=== PATIENT | female | born 1990 | race Caucasian/White ===

== ENCOUNTER → 2024-05-15 | Outpatient (CLI) | payer MEDICAID, SELFPAY ==
--- NOTE | 2024-05-15 09:03 | XR_ITS ---
Examination: Bilateral hands, 6 views. 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
--- NOTE | 2024-05-15 09:03 | XR_ITS ---
Examination: Bilateral wrists 6 views TECHNIQUE: AP oblique lateral each wrist total 6 views Exam date and time: May 15, 2024 1009 hours INDICATIONS: Bilateral wrist pain with decreased range of motion 2 years FINDINGS: No fracture or dislocation involving either wrist Bilateral mild osteoarthritis radiocarpal and first carpometacarpal joints No avascular necrosis No erosive arthritis IMPRESSION: Bilateral mild osteoarthritis radiocarpal and first carpometacarpal joints
== END | disposition home or self-care (01) ==
LOC: CDIM 08:57
PROVIDERS: PCP Family Medicine; Referring Provider Nurse Practitioner Gerontology; Visit Provider Nurse Practitioner Gerontology
DX: M19.032 Primary osteoarthritis, left wrist (principal); M19.031 Primary osteoarthritis, right wrist; M19.042 Primary osteoarthritis, left hand; M19.041 Primary osteoarthritis, right hand; M20.092 Other deformity of left finger(s)
CPT/HCPCS: 73110; 73130

== ENCOUNTER 2024-07-04 00:13 | Emergency (ER) | payer MEDICAID, SELFPAY ==
[2024-07-04 00:14] VITALS: BMI 40.7
[2024-07-04 00:43] VITALS: BP 131/58; PULSE 74; RESP 19; TEMP 36.8; O2SAT 98
--- NOTE | 2024-07-04 01:11 | PD.EDURI ---
Upper Respiratory Inf. RME/HPI General Chief Complaint: Flu Like Symptoms Stated Complaint: COUGHING, VOMITING Time Seen by Provider: 07/04/24 00:53 Arrival date/time: 07/04/24 00:13 33F with history of meth use presents to ED with several days of cough and sore throat, as well as some N/V from coughing. Patient denies ab pain, CP, and SOB. Limitations: no limitations Related Data Previous Rx's ?Medication ?Instructions ?Recorded albuterol sulfate 90 mcg/actuation 2 puff inhalation QID PRN 03/28/21 aerosol inhaler shortness of breath or wheezing #8.5 grams ibuprofen 800 mg tablet 800 mg PO Q6H PRN pain #10 tabs 03/28/21 acetaminophen 500 mg tablet 1,000 mg (2 x 500 mg) PO TID PRN 03/13/22 (Tylenol Extra Strength) fever or pain #30 tabs sumatriptan succinate 25 mg tablet 25 mg PO Q6HR PRN migraine 12/31/22 headache #30 tabs dextromethorphan-guaifenesin 10 10 ml PO Q8H PRN cough #237 mL 06/01/23 mg-100 mg/5 mL oral syrup ibuprofen 800 mg tablet 800 mg PO Q8H PRN pain #20 tabs 06/01/23 phenazopyridine 200 mg tablet 200 mg PO TID 6 doses #6 tabs 06/09/23 (Pyridium) ibuprofen 800 mg tablet (IBU) 800 mg PO Q8H #20 tabs 07/28/23 phenazopyridine 100 mg tablet 100 mg PO TID PRN pain 6 doses #6 07/28/23 (Pyridium) tabs erythromycin 5 mg/gram (0.5 %) eye 0.5 inch ophthalmic (eye) QID #3.5 09/03/23 ointment grams ibuprofen 800 mg tablet 800 mg PO TID PRN pain #30 tabs 02/01/24 oseltamivir 75 mg capsule (Tamiflu) 75 mg PO BID 5 days #10 caps 07/04/24 Allergies Allergy/AdvReac Type Severity Reaction Status Date / Time No Known Allergies Allergy Verified 07/04/24 00:16 Review of Systems Review of Systems Systems Reviewed: All systems reviewed, normal except as documented Constitutional Constitutional: Reports system reviewed and no additional complaints, except as documented, Denies fever(s) and Denies headache(s) ENT Ears, Nose, Mouth, and Throat: Reports as per HPI, Denies disequilibrium, Denies headache(s) and Reports sore throat Cardiovascular Cardiovascular: Reports system reviewed and no additional complaints, except as documented, Denies chest pain and Denies dyspnea Respiratory Respiratory: Reports system reviewed and no additional complaints, except as documented, Reports as per HPI, Reports cough and Denies dyspnea Gastrointestinal Gastrointestinal: Reports system reviewed and no additional complaints, except as documented, Denies abdominal pain, Denies nausea and Denies vomiting Neurologic Neurologic: Reports system reviewed and no additional complaints, except as documented, Denies confusion, Denies disequilibrium and Denies headache(s) Psychiatric Psychiatric: Denies confusion Past Medical History Past Medical History NEUROLOGIC: Negative Neurological Disorders CARDIAC: Positive Cellulitis; Negative Cardiac Disorders or Congestive Heart Failure RESPIRATORY: Positive Asthma; Negative Chronic Obstructive Pulmonary Disease (COPD) GASTROINTESTINAL: Negative Gastrointestinal Disorders GENITOURINARY: Positive Genitourinary Disorders; Negative Renal Disease MUSCULOSKELETAL: Negative Musculoskeletal Disorders ENDOCRINE: Positive Endocrine Disorders and Systemic Lupus Erythematosus; Negative Diabetes Mellitus Type 1 or Diabetes Mellitus Type 2 HEMATOLOGIC: Positive Blood Disorders and Anemia; Negative Sickle Cell Disease PSYCHO/SOCIAL: Positive Recreational Drug Use and Depression Surgical History SURGICAL: Positive Tubal Ligation Social History SMOKING STATUS: Current every day smoker SUBSTANCE USE: former substance user (meth, heroin, weed) ED Exam General Limitations: Present no limitations General appearance: Present alert and in no apparent distress Head Head exam: Present atraumatic Eye Eye exam: Present normal appearance, PERRL and EOMI ENT ENT exam: Present mucous membranes moist Expanded ENT Exam Throat exam: Present tonsillar erythema; Absent tonsillomegaly, tonsillar exudate, R peritonsillar mass, L peritonsillar mass or muffled voice Neck Neck exam: Present normal inspection, full ROM and trachea midline Chest Chest inspection: Present normal inspection and symmetric chest wall rise Respiratory Respiratory exam: Present normal lung sounds bilaterally Cardiovascular Cardiovascular exam: Present regular rate, normal rhythm and normal heart sounds Abdominal Exam Abdominal exam: Present soft and normal bowel sounds Extremities Exam Extremities exam: Present normal inspection and full ROM Back Exam Back exam: Present normal inspection and full ROM Neurological Exam Neurological exam: Present alert, oriented X3 and CN II-XII intact Psychiatric Psychiatric exam: Present normal affect and normal mood Skin Skin exam: Present warm, dry, intact and normal color Course Quality Measures none Orders Category Date Time Status Bedside Influenza A&B Antigen Test NOW Care 07/04/24 00:18 Completed Strep A Rapid Stat Lab 07/04/24 01:00 Completed Oseltamivir [Tamiflu] Med 07/04/24 02:27 Discontinued 75 mg PO X1 ONE Vital Signs Vital signs: Vital Signs Temperature 98.3 F 07/04/24 00:43 Pulse Rate 74 07/04/24 00:43 Respiratory Rate 19 07/04/24 00:43 Blood Pressure 131/58 H 07/04/24 00:43 Pulse Oximetry (%) 98 07/04/24 00:43 Oxygen Delivery Method Room Air 07/04/24 00:43 O2 at 98% on RA and WNLs Upper Respiratory Infection MDM Narrative MDM Narrative:: 33F with history of meth use presents to ED with several days of cough and sore throat, as well as some N/V from coughing. Patient denies ab pain, CP, and SOB. Physical exam reveals red oropharynx, but otherwise clear ENT and lungs. Patient is afebrile, calm, and alert. Flu A/B+. WIll give Tamiflu given meth use. Patient data External records reviewed:: [facility] previous records Clinical information provided by:: patient Social determinants that could affect healthcare access:: substance use Patient has the following chronic illnesses:: meth use How is presenting disease/condition affected by chronic disease/condition?: exacerbated by Evaluation data The following diagnostics were reviewed and interpreted by me:: lab results Lab and/or radiology exams considered but not ordered:: ordered Interpretation Summary: above Medications / Prescriptions Medications or Prescriptions considered but not ordered:: ordered Medication administrations:: Medication Administration History Discontinued Medications Oseltamivir Phosphate (Oseltamivir 75 Mg Capsule) 75 mg PO X1 ONE Stop: 07/04/24 02:28 above Consultations Consultation(s) initiated? (list below): No Diagnosis Upper Respiratory Differential Diagnosis: upper respiratory infection, croup, otitis media, sinusitis, viral infection, bronchitis, influenza and pharyngitis Most likely diagnosis given after review of the tests above:: flu A/B Admission Indicated Admission indicated?: not indicated Admission Request Was there a request for admission?: No Disposition Plan Disposition Plan: Discharge Discharge Attestation Discharge Attestation: The patient and all family members were given an opportunity to ask questions and understood the discharge instructions. Discharge instructions specifically effects, indications for sooner follow up or return to the emergency department, and the expected course of current diagnosis. Patient condition: Stable Discharge Plan Plan Patient Disposition: HOME (Self Care) Disposition Comment: Stable Prescriptions/Referrals Prescriptions/Med Rec: New oseltamivir [Tamiflu] 75 mg capsule 75 mg PO BID 5 Days Qty: 10 0RF No Action albuterol sulfate 90 mcg/actuation HFA aerosol inhaler 2 puff inhalation QID PRN (Reason: shortness of breath or wheezing) Qty: 8.5 0RF ibuprofen 800 mg tablet 800 mg PO Q6H PRN (Reason: pain) Qty: 10 0RF acetaminophen [Tylenol Extra Strength] 500 mg tablet 1,000 mg PO TID PRN (Reason: fever or pain) Qty: 30 0RF ibuprofen 800 mg tablet 800 mg PO Q8H PRN (Reason: pain) Qty: 20 0RF dextromethorphan-guaifenesin 10-100 mg/5 mL syrup 10 ml PO Q8H PRN (Reason: cough) Qty: 237 0RF phenazopyridine [Pyridium] 100 mg tablet 100 mg PO TID PRN (Reason: pain) Qty: 6 0RF ibuprofen [IBU] 800 mg tablet 800 mg PO Q8H Qty: 20 0RF ibuprofen 800 mg tablet 800 mg PO TID PRN (Reason: pain) Qty: 30 0RF sumatriptan succinate 25 mg tablet 25 mg PO Q6HR PRN (Reason: migraine headache) Qty: 30 0RF Rx Instructions: do not exceed 8 doses per 24 hrs phenazopyridine [Pyridium] 200 mg tablet 200 mg PO TID Qty: 6 0RF erythromycin 5 mg/gram (0.5 %) ointment 0.5 inch ophthalmic (eye) QID Qty: 3.5 0RF Referrals: Jose Quevedo MD [Primary Care Provider] - In 1 week Problem List Clinical Impression: Influenza Patient/Caregiver Discharge Instructions Education Materials: ED Influenza (Adult) Additional Instructions: Please follow-up with PCP within 24-48 hours and return immediately if symptoms worsen. Ibuprofen/Tylenol can be used simultaneously for greater fever/pain control. FYI, Tylenol comes in a suppository form. Benadryl is good for cough, congestion, and sleep. Print Language: Syriac Stand Alone Forms: Patient Portal Info Letter PA/VP CARDIOVASCULAR Supervising Physician PA/VP CARDIOVASCULAR Supervising Physician: Dr. Connelly
[2024-07-04 02:24] LABS: Strep A Rapid Negative (Negative)
[2024-07-04] MEDS: OSELTAMIVIR 75 MG CAPSULE PO (02:34)
== END 2024-07-04 02:35 | disposition home or self-care (01) ==
PROVIDERS: Physician Assistant; Emergency Provider Emergency Medicine; PCP Family Medicine
DX: J11.1 Influenza due to unidentified influenza virus with other respiratory manifestations (principal); F17.290 Nicotine dependence, other tobacco product, uncomplicated
CPT/HCPCS: 87400; 87651; 99283; A9270

== ENCOUNTER 2024-07-24 18:26 | Emergency (ER) | payer MEDICAID, SELFPAY ==
[2024-07-24 18:36] VITALS: BP 129/82; PULSE 93; RESP 20; TEMP 36.8; O2SAT 99
--- NOTE | 2024-07-24 18:58 | EDNOTE_ITS ---
ED Back Injury Pain RME/HPI General Chief Complaint: Back Pain/Injury Stated Complaint: LOWER LEFT BACK PAIN X TODAY Time Seen by Provider: 07/24/24 18:39 Arrival date/time: 07/24/24 18:26 33F with history of asthma, SLE, and drug use presents to ED with 1 day of L lower back pain as well as several days of dysuria. Patient denies fall/trauma, but does state she's been moving/poultry picker things more today. Limitations: no limitations Related Data Previous Rx's ?Medication ?Instructions ?Recorded albuterol sulfate 90 mcg/actuation 2 puff inhalation Q ID PRN 03/28/21 aerosol inhaler shortness of breath or wheez ing #8.5 grams ibuprofen 800 mg tablet 800 mg PO Q6H PRN pain #10 t abs 03/28/21 acetaminophen 500 mg tablet 1,000 mg (2 x 500 mg) PO T ID PRN 03/13/22 (Tylenol Extra Strength) fever or pain #30 tabs sumatriptan succinate 25 mg tablet 25 mg PO Q6HR PRN m igraine 12/31/22 headache #30 tabs dextromethorphan-guaifenesin 10 10 ml PO Q8H PRN cough #237 mL 06/01/23 mg-100 mg/5 mL oral syrup ibuprofen 800 mg tablet 800 mg PO Q8H PRN pain #20 t abs 06/01/23 phenazopyridine 200 mg tablet 200 mg PO TID 6 doses #6 tabs 06/09/23 (Pyridium) ibuprofen 800 mg tablet (IBU) 800 mg PO Q8H #20 tabs 0 07/28/23 phenazopyridine 100 mg tablet 100 mg PO TID PRN pain 6 doses #6 07/28/23 (Pyridium) tabs erythromycin 5 mg/gram (0.5 %) eye 0.5 inch ophthalmic (eye) QID #3.5 09/03/23 ointment grams ibuprofen 800 mg tablet 800 mg PO TID PRN pain #30 t abs 02/01/24 Allergies Allergy/AdvReac Type Severity Reaction Status Date / Time No Known Allergies Allergy Verified 07/04/24 00:16 Review of Systems Review of Systems Systems Reviewed: All systems reviewed, normal except as documented Constitutional Constitutional: Reports system reviewed and no additional complaints, except as documented, Denies fever(s) and Denies headache(s) ENT Ears, Nose, Mouth, and Throat: Denies disequilibrium and Denies headache(s) Cardiovascular Cardiovascular: Reports system reviewed and no additional complaints, except as documented, Denies chest pain and Denies dyspnea Respiratory Respiratory: Reports system reviewed and no additional complaints, except as documented, Denies cough and Denies dyspnea Gastrointestinal Gastrointestinal: Reports system reviewed and no additional complaints, except as documented, Denies abdominal pain, Denies nausea and Denies vomiting Genitourinary Genitourinary: Reports as per HPI, Reports dysuria and Reports flank pain Neurologic Neurologic: Reports system reviewed and no additional complaints, except as documented, Denies confusion, Denies disequilibrium and Denies headache(s) Psychiatric Psychiatric: Denies confusion Past Medical History Past Medical History NEUROLOGIC: Negative Neurological Disorders CARDIAC: Positive Cellulitis; Negative Cardiac Disorders or Congestive Heart Failure RESPIRATORY: Positive Asthma; Negative Chronic Obstructive Pulmonary Disease (COPD) GASTROINTESTINAL: Negative Gastrointestinal Disorders GENITOURINARY: Positive Genitourinary Disorders; Negative Renal Disease MUSCULOSKELETAL: Negative Musculoskeletal Disorders ENDOCRINE: Positive Endocrine Disorders and Systemic Lupus Erythematosus; Negative Diabetes Mellitus Type 1 or Diabetes Mellitus Type 2 HEMATOLOGIC: Positive Blood Disorders and Anemia; Negative Sickle Cell Disease PSYCHO/SOCIAL: Positive Recreational Drug Use and Depression Surgical History SURGICAL: Positive Tubal Ligation Social History SMOKING STATUS: Light (< 1 pack/day) SUBSTANCE USE: former substance user (meth, heroin, weed) ED Exam General Limitations: Present no limitations General appearance: Present alert and in no apparent distress Head Head exam: Present atraumatic Eye Eye exam: Present normal appearance, PERRL and EOMI ENT ENT exam: Present normal exam, normal oropharynx and mucous membranes moist Neck Neck exam: Present normal inspection, full ROM and trachea midline Chest Chest inspection: Present normal inspection and symmetric chest wall rise Respiratory Respiratory exam: Present normal lung sounds bilaterally Cardiovascular Cardiovascular exam: Present regular rate, normal rhythm and normal heart sounds Abdominal Exam Abdominal exam: Present soft and normal bowel sounds Extremities Exam Extremities exam: Present normal inspection and full ROM Back Exam Back exam: Present normal inspection and full ROM Neurological Exam Neurological exam: Present alert, oriented X3 and CN II-XII intact Psychiatric Psychiatric exam: Present normal affect and normal mood Skin Skin exam: Present warm, dry, intact and normal color Course Quality Measures none Orders Category Date Time Status CBC Stat Lab 07/24/24 18:47 Completed CMP [Comprehensive Metabolic Panel] Stat Lab 07/24/24 18:47 Completed Drug Screen,Urine Stat Lab 07/24/24 07:03 Completed HCG Qualitative,Urine Stat Lab 07/24/24 07:03 Completed Urinalysis, C/S if Indicated Stat Lab 07/24/24 07:03 Completed CYCLObenzaPRINE [Flexeril] Med 07/24/24 18:39 Discontinued 5 mg PO X1 ONE Naproxen [Naprosyn] Med 07/24/24 18:39 Discontinued 500 mg PO X1 ONE Vital Signs Vital signs: Vital Signs Temperature 98.3 F 07/24/24 18:36 Pulse Rate 93 07/24/24 18:36 Respiratory Rate 20 07/24/24 18:36 Blood Pressure 129/82 07/24/24 18:36 Pulse Oximetry (%) 99 07/24/24 18:36 Oxygen Delivery Method Room Air 07/24/24 18:36 O2 at 99% on RA and WNLs Back Pain / Injury MDM Narrative MDM Narrative:: 33F with history of asthma, SLE, and drug use presents to ED with 1 day of L lower back pain as well as several days of dysuria. Patient denies fall/trauma, but does state she's been moving/poultry picker things more today. Physical exam reveals no L back tenderness. Pain is with ROM, which is intact. Gait normal. Patient is afebrile, calm, and alert. No leukocytosis. CMP unremarkable. UA clean. Pain relieved with meds. Patient data External records reviewed:: [facility] previous records Clinical information provided by:: patient Social determinants that could affect healthcare access:: substance use Patient has the following chronic illnesses:: asthma, SLE, and drug use How is presenting disease/condition affected by chronic disease/condition?: exacerbated by Evaluation data The following diagnostics were reviewed and interpreted by me:: lab results Lab and/or radiology exams considered but not ordered:: ordered Interpretation Summary: above Medications / Prescriptions Medications or Prescriptions considered but not ordered:: ordered Medication administrations:: Medication Administration History Discontinued Medications Cyclobenzaprine HCl (Cyclobenzaprine 5 Mg Tablet) 5 mg PO X1 ONE Stop: 07/24/24 18:40 Last Admin: 07/24/24 19:13 Dose: 5 mg Documented By: OA Naproxen (Naproxen 250 Mg Tablet) 500 mg PO X1 ONE Stop: 07/24/24 18:40 Last Admin: 07/24/24 19:14 Dose: 500 mg Documented By: OA above Consultations Consultation(s) initiated? (list below): No Diagnosis Differential diagnosis back pain/injury: lumbar radiculopathy, sciatica, strain of lumbar region, renal colic, pyelonephritis (UTI), thoracic back pain, AAA and discitis Most likely diagnosis given after review of the tests above:: strain of lumbar region Admission Indicated Admission indicated?: not indicated Admission Request Was there a request for admission?: No Disposition Plan Disposition Plan: Discharge Discharge Attestation Discharge Attestation: The patient and all family members were given an opportunity to ask questions and understood the discharge instructions. Discharge instructions specifically effects, indications for sooner follow up or return to the emergency department, and the expected course of current diagnosis. Patient condition: Stable Discharge Plan Plan Patient Disposition: HOME (Self Care) Disposition Comment: Stable Prescriptions/Referrals Prescriptions/Med Rec: No Action albuterol sulfate 90 mcg/actuation HFA aerosol inhaler 2 puff inhalation QID PRN (Reason: shortness of breath or wheezing) Qty: 8.5 0RF ibuprofen 800 mg tablet 800 mg PO Q6H PRN (Reason: pain) Qty: 10 0RF acetaminophen [Tylenol Extra Strength] 500 mg tablet 1,000 mg PO TID PRN (Reason: fever or pain) Qty: 30 0RF ibuprofen 800 mg tablet 800 mg PO Q8H PRN (Reason: pain) Qty: 20 0RF dextromethorphan-guaifenesin 10-100 mg/5 mL syrup 10 ml PO Q8H PRN (Reason: cough) Qty: 237 0RF phenazopyridine [Pyridium] 100 mg tablet 100 mg PO TID PRN (Reason: pain) Qty: 6 0RF ibuprofen [IBU] 800 mg tablet 800 mg PO Q8H Qty: 20 0RF ibuprofen 800 mg tablet 800 mg PO TID PRN (Reason: pain) Qty: 30 0RF sumatriptan succinate 25 mg tablet 25 mg PO Q6HR PRN (Reason: migraine headache) Qty: 30 0RF Rx Instructions: do not exceed 8 doses per 24 hrs phenazopyridine [Pyridium] 200 mg tablet 200 mg PO TID Qty: 6 0RF erythromycin 5 mg/gram (0.5 %) ointment 0.5 inch ophthalmic (eye) QID Qty: 3.5 0RF Referrals: Jose Quevedo MD [Primary Care Provider] - In 1 week Problem List Clinical Impression: Strain of lumbar region Patient/Caregiver Discharge Instructions Education Materials: ED Back Sprain/Strain Additional Instructions: Please follow-up with PCP within 24-48 hours and return immediately if symptoms worsen. If problem persists, recommend outpatient PT and/or MRI follow-up. In the meantime, rest, use ice/heat, and/or compression. Print Language: Montserratian Stand Alone Forms: Patient Portal Info Letter PA/MANAGER OF RADIOLOGY Supervising Physician PA/MANAGER OF RADIOLOGY Supervising Physician: Dr. Connelly
[2024-07-24 19:06] LABS: Basophils # (Auto) 0.1 Thou/mm3 (0.0-0.2); Basophils % (Auto) 1 % (0-2.5); Eosinophils # (Auto) 0.5 Thou/mm3 (0.0-0.5); Eosinophils % (Auto) 6 % (0-10); Hemoglobin 11.4 g/dL (12.0-16.0); Immature Granulocytes % (Auto) 0 % (0-0); Immature Granulocytes Auto 0.01 Thou/mm3 (0.00-0.00); Lymphocytes # (Auto) 2.4 Thou/mm3 (1.0-4.8); Lymphocytes % (Auto) 27 % (10-50); Mean Corpuscular HGB Conc 33.5 g/dl (31.0-37.0); Mean Corpuscular Volume 87 fL (80-100); Monocytes # (Auto) 0.6 Thou/mm3 (0.0-0.8); Monocytes % (Auto) 6 % (0-12); Neutrophils # (Auto) 5.5 Thou/mm3 (1.8-7.7); Neutrophils % (Auto) 60 % (37-80); Nucleated Red Blood Cell % 0 /100 WBC (0); Platelet Count 322 Thou/mm3 (140-440); RDW Standard Deviation 41.4 fL (36.4-46.3); Red Blood Count 3.93 Miln/mm3 (4.00-5.20)
[2024-07-24] MEDS: CYCLObenzaPRINE 5 MG TABLET PO (19:13)
[2024-07-24] MEDS: NAPROXEN 250 MG TABLET 500 MG PO (19:14)
[2024-07-24 19:28] LABS: Alanine Aminotransferase 46 U/L (10-49); Albumin, Serum 4.4 gm/dL (3.5-5.0); Albumin/Globulin Ratio 1.3 (1.2-2.2); Alkaline Phosphatase 69 U/L (46-116); Anion Gap 8 (7-16); Aspartate Amino Transferase 20 U/L (0-34); BUN/Creatinine Ratio 13 Ratio (12-20); Bilirubin,Total 0.2 mg/dL (0.3-1.2); Blood Urea Nitrogen 9 mg/dL (9-23); Calcium 9.9 mg/dL (8.3-10.6); Calcium (Corrected) 9.9 mg/dL (8.5-10.1); Carbon Dioxide 26.9 mMol/L (20.0-31.0); Chloride 105 mMol/L (98-107); Creatinine (Component) 0.7 mg/dL (0.6-1.3); Globulin 3.4 gm/dL (2.3-3.5); Glucose 95 mg/dL (74-106); Osmolality,Calculated 278 (275-295); Potassium 4.1 mMol/L (3.4-5.1); Sodium 140 mMol/L (136-145); Total Protein 7.8 gm/dL (5.7-8.2); eGFR > 60 See Note
[2024-07-24 19:48] LABS: Collection Type, Urine Clean Catch
[2024-07-24 19:58] LABS: Bilirubin,Urine Negative (Negative); Blood,Urine Negative (Negative); Clarity,Urine Clear (Clear/Hazy); Color,Urine Lt-Yellow (Lt Yel-Yel); Culture Indicated,Urine Not Indicated; Glucose, Urine Negative (Negative); Ketones,Urine Negative (Negative); Leukocyte Esterase,Urine Negative (Negative); Nitrite,Urine Negative (Negative); PH,Urine 5.5 (5.0-7.0); Protein,Urine Negative (Neg - Trace); RBC,Urine 1 /hpf (0-3); Specific Gravity,Urine 1.019 (1.001-1.035); Squamous Epithelial Cell,Urine 3 /hpf (0-5); Urobilinogen,Urine Negative mg/dL (0.0-1.0); WBC,Urine 7 /hpf (0-5)
[2024-07-24 20:00] LABS: HCG Qualitative,Urine Negative
[2024-07-24 20:41] LABS: Amphetamine/Methamp Scrn,U Negative (Negative); Barbiturate Screen,Urine Negative (Negative); Benzodiazepines Screen,Urine Negative (Negative); Benzoylecgonine Screen, Ur Negative (Negative); Fentanyl Screen,Urine Negative (Negative); Opiate Screen,Urine Negative (Negative); THC Screen,Urine Negative (Negative)
[2024-07-24 20:42] VITALS: BP 126/88; PULSE 86; RESP 18; TEMP 36.7; O2SAT 97
== END 2024-07-24 21:22 | disposition home or self-care (01) ==
PROVIDERS: Physician Assistant; Emergency Provider Emergency Medicine; PCP Family Medicine
DX: S39.012A Strain of muscle, fascia and tendon of lower back, initial encounter (principal); J45.909 Unspecified asthma, uncomplicated; M32.9 Systemic lupus erythematosus, unspecified; F17.210 Nicotine dependence, cigarettes, uncomplicated; X58.XXXA Exposure to other specified factors, initial encounter
CPT/HCPCS: 36415; 80053; 80307; 81001; 81025; 85025; 99283; A9270

== ENCOUNTER 2024-10-08 16:27 | Emergency (ER) | payer MEDICAID, SELFPAY ==
[2024-10-08 16:28] VITALS: BMI 42.5
[2024-10-08 16:41] VITALS: BP 131/77; PULSE 94; RESP 18; TEMP 36.9; O2SAT 97
[2024-10-08 16:57] VITALS: TEMP 36.9
[2024-10-08] MEDS: KETOROLAC INJ 30 MG/ML VIAL IM (16:57)
[2024-10-08 17:13] VITALS: BP 136/82; PULSE 78; RESP 18; TEMP 36.7; O2SAT 98
--- NOTE | 2024-10-08 17:58 | PD.EDBACK ---
ED Back Injury Pain RME/HPI General Chief Complaint: Back Pain/Injury Stated Complaint: LOWER BACK PAIN Time Seen by Provider: 10/08/24 16:45 Arrival date/time: 10/08/24 16:27 33-year-old female presents emergency department today for complaints of acute on chronic back pain patient reports no saddle anesthesia no loss of bowel or bladder no chance of no fever nausea vomiting no dysuria polyuria Limitations: no limitations Related Data Previous Rx's ?Medication ?Instructions ?Recorded albuterol sulfate 90 mcg/actuation 2 puff inhalation QID PRN 03/28/21 aerosol inhaler shortness of breath or wheezing #8.5 grams ibuprofen 800 mg tablet 800 mg PO Q6H PRN pain #10 tabs 03/28/21 acetaminophen 500 mg tablet 1,000 mg (2 x 500 mg) PO TID PRN 03/13/22 (Tylenol Extra Strength) fever or pain #30 tabs sumatriptan succinate 25 mg tablet 25 mg PO Q6HR PRN migraine 12/31/22 headache #30 tabs dextromethorphan-guaifenesin 10 10 ml PO Q8H PRN cough #237 mL 06/01/23 mg-100 mg/5 mL oral syrup ibuprofen 800 mg tablet 800 mg PO Q8H PRN pain #20 tabs 06/01/23 phenazopyridine 200 mg tablet 200 mg PO TID 6 doses #6 tabs 06/09/23 (Pyridium) ibuprofen 800 mg tablet (IBU) 800 mg PO Q8H #20 tabs 07/28/23 phenazopyridine 100 mg tablet 100 mg PO TID PRN pain 6 doses #6 07/28/23 (Pyridium) tabs erythromycin 5 mg/gram (0.5 %) eye 0.5 inch ophthalmic (eye) QID #3.5 09/03/23 ointment grams ibuprofen 800 mg tablet 800 mg PO TID PRN pain #30 tabs 02/01/24 cyclobenzaprine 10 mg tablet 10 mg PO TID PRN muscle spasm 10 10/08/24 days #30 tab-caps ibuprofen 800 mg tablet 800 mg PO TID PRN pain #30 tabs 10/08/24 Allergies Allergy/AdvReac Type Severity Reaction Status Date / Time No Known Allergies Allergy Verified 10/08/24 16:29 Review of Systems Review of Systems Systems Reviewed: All systems reviewed, normal except as documented Constitutional Constitutional: Reports system reviewed and no additional complaints, except as documented, Denies fever(s) and Denies headache(s) Eyes Eyes: Reports system reviewed and no additional complaints, except as documented and Denies blurry vision ENT Ears, Nose, Mouth, and Throat: Reports system reviewed and no additional complaints, except as documented, Denies headache(s), Denies nasal congestion and Denies nasal discharge Cardiovascular Cardiovascular: Reports system reviewed and no additional complaints, except as documented, Denies chest pain and Denies dyspnea Respiratory Respiratory: Reports system reviewed and no additional complaints, except as documented, Denies chest congestion, Denies cough and Denies dyspnea Gastrointestinal Gastrointestinal: Reports system reviewed and no additional complaints, except as documented and Denies abdominal pain Musculoskeletal Musculoskeletal: Reports system reviewed and no additional complaints, except as documented and Reports back pain Integumentary/Breasts Skin/Breast: Reports system reviewed and no additional complaints, except as documented and Denies rash Neurologic Neurologic: Reports system reviewed and no additional complaints, except as documented, Reports as per HPI and Denies headache(s) Past Medical History Past Medical History NEUROLOGIC: Negative Neurological Disorders CARDIAC: Positive Cellulitis; Negative Cardiac Disorders or Congestive Heart Failure RESPIRATORY: Positive Asthma; Negative Chronic Obstructive Pulmonary Disease (COPD) GASTROINTESTINAL: Negative Gastrointestinal Disorders GENITOURINARY: Positive Genitourinary Disorders; Negative Renal Disease MUSCULOSKELETAL: Negative Musculoskeletal Disorders ENDOCRINE: Positive Endocrine Disorders and Systemic Lupus Erythematosus; Negative Diabetes Mellitus Type 1 or Diabetes Mellitus Type 2 HEMATOLOGIC: Positive Blood Disorders and Anemia; Negative Sickle Cell Disease PSYCHO/SOCIAL: Positive Recreational Drug Use and Depression Surgical History SURGICAL: Positive Tubal Ligation Social History SMOKING STATUS: Current every day smoker SUBSTANCE USE: former substance user (meth, heroin, weed) ED Exam General Limitations: Present no limitations General appearance: Present alert and in no apparent distress Head Head exam: Present atraumatic, normocephalic and normal inspection Eye Eye exam: Present normal appearance, PERRL and EOMI; Absent conjunctival injection ENT ENT exam: Present normal exam, normal oropharynx and mucous membranes moist Neck Neck exam: Present normal inspection, full ROM and trachea midline Chest Chest inspection: Present normal inspection and symmetric chest wall rise Respiratory Respiratory exam: Present normal lung sounds bilaterally Cardiovascular Cardiovascular exam: Present regular rate, normal rhythm and normal heart sounds Abdominal Exam Abdominal exam: Present soft and normal bowel sounds; Absent distention, tenderness, guarding, rebound or rigidity Extremities Exam Extremities exam: Present normal inspection and full ROM Back Exam Back exam: Present normal inspection, full ROM, tenderness, muscle spasm and paraspinal tenderness; Absent CVA tenderness (R) or CVA tenderness (L) Neurological Exam Neurological exam: Present alert, oriented X3 and CN II-XII intact Psychiatric Psychiatric exam: Present normal affect and normal mood Skin Skin exam: Present warm, dry, intact and normal color Course Quality Measures none Orders Category Date Time Status Ketorolac Inj [Toradol Inj] Med 10/08/24 16:45 Discontinued 30 mg IM X1 ONE Vital Signs Vital signs: Vital Signs Temperature 98.5 F 10/08/24 16:41 Pulse Rate 94 10/08/24 16:41 Respiratory Rate 18 10/08/24 16:41 Blood Pressure 131/77 H 10/08/24 16:41 Pulse Oximetry (%) 97 10/08/24 16:41 Oxygen Delivery Method Room Air 10/08/24 16:41 O2 saturation 97% r/a wnl Back Pain / Injury MDM Narrative MDM Narrative:: 33-year-old female presents emergency department today for complaints of acute on chronic back pain patient reports no saddle anesthesia no loss of bowel or bladder no chance of no fever nausea vomiting no dysuria polyuria On exam patient well-appearing patient does not appear toxic no acute distress Patient reports pain is worse with movement Patient was given the option for lab work and imaging patient declined Patient given Toradol for pain discharged with meds oral access and pain medications Patient discharged home in no distress to follow-up with primary care doctor in the next 24 to 48 hours and for any worsening symptoms to return to the ER immediately Patient data External records reviewed:: [facility] previous records Clinical information provided by:: patient Social determinants that could affect healthcare access:: none Patient has the following chronic illnesses:: See history How is presenting disease/condition affected by chronic disease/condition?: uneffected by Evaluation data The following diagnostics were reviewed and interpreted by me:: other (specify) (N/A) Lab and/or radiology exams considered but not ordered:: Consider not ordered Interpretation Summary: N/A Medications / Prescriptions Medications or Prescriptions considered but not ordered:: Given Medication administrations:: Medication Administration History Discontinued Medications Ketorolac Tromethamine (Ketorolac Inj 30 Mg/Ml Vial) 30 mg IM X1 ONE Stop: 10/08/24 16:46 Last Admin: 10/08/24 16:57 Dose: 30 mg Documented By: CN Given Consultations Consultation(s) initiated? (list below): No Diagnosis Differential diagnosis back pain/injury: lumbar radiculopathy, sciatica and strain of lumbar region Most likely diagnosis given after review of the tests above:: Back pain Admission Indicated Admission indicated?: not indicated Admission Request Was there a request for admission?: No Disposition Plan Disposition Plan: Discharge Discharge Attestation Discharge Attestation: The patient and all family members were given an opportunity to ask questions and understood the discharge instructions. Discharge instructions specifically effects, indications for sooner follow up or return to the emergency department, and the expected course of current diagnosis. Patient condition: Stable Discharge Plan Plan Patient Disposition: HOME (Self Care) Discharge Disposition comment: Stable Prescriptions/Referrals Prescriptions/Med Rec: New cyclobenzaprine 10 mg tablet 10 mg PO TID PRN (Reason: muscle spasm) 10 Days Qty: 30 0RF ibuprofen 800 mg tablet 800 mg PO TID PRN (Reason: pain) Qty: 30 0RF No Action albuterol sulfate 90 mcg/actuation HFA aerosol inhaler 2 puff inhalation QID PRN (Reason: shortness of breath or wheezing) Qty: 8.5 0RF ibuprofen 800 mg tablet 800 mg PO Q6H PRN (Reason: pain) Qty: 10 0RF acetaminophen [Tylenol Extra Strength] 500 mg tablet 1,000 mg PO TID PRN (Reason: fever or pain) Qty: 30 0RF ibuprofen 800 mg tablet 800 mg PO Q8H PRN (Reason: pain) Qty: 20 0RF dextromethorphan-guaifenesin 10-100 mg/5 mL syrup 10 ml PO Q8H PRN (Reason: cough) Qty: 237 0RF phenazopyridine [Pyridium] 100 mg tablet 100 mg PO TID PRN (Reason: pain) Qty: 6 0RF ibuprofen [IBU] 800 mg tablet 800 mg PO Q8H Qty: 20 0RF ibuprofen 800 mg tablet 800 mg PO TID PRN (Reason: pain) Qty: 30 0RF sumatriptan succinate 25 mg tablet 25 mg PO Q6HR PRN (Reason: migraine headache) Qty: 30 0RF Rx Instructions: do not exceed 8 doses per 24 hrs phenazopyridine [Pyridium] 200 mg tablet 200 mg PO TID Qty: 6 0RF erythromycin 5 mg/gram (0.5 %) ointment 0.5 inch ophthalmic (eye) QID Qty: 3.5 0RF Problem List Clinical Impression: Lumbar radiculopathy Patient/Caregiver Discharge Instructions Education Materials: Back Safety: Lifting Additional Instructions: Please follow up with your primary care doctor in the next 24-48hrs for any worsening symptoms return here immediately Print Language: [place]guill[place] Stand Alone Forms: Lisa Award Info., Work/School Release, Patient Portal Info Letter PA/OPERATING SYSTEMS SPECIALIST Supervising Physician PA/OPERATING SYSTEMS SPECIALIST Supervising Physician: Dr. maurice
== END 2024-10-08 17:13 | disposition home or self-care (01) ==
LOC: SERX 17:31
PROVIDERS: Emergency Provider Emergency Medicine
DX: M54.16 Radiculopathy, lumbar region (principal)
CPT/HCPCS: 96372; 99283; J1885

== ENCOUNTER 2024-11-26 09:23 | Emergency (ER) | payer MEDICAID, SELFPAY ==
[2024-11-26 09:24] VITALS: BMI 39.6
[2024-11-26 09:35] VITALS: BP 118/80; PULSE 74; RESP 18; TEMP 36.8; O2SAT 98; BMI 35.4
[2024-11-26 10:06] LABS: Strep A Rapid Negative (Negative)
--- NOTE | 2024-11-26 10:42 | PD.EDDENTL ---
ED Dental RME/HPI General Chief complaint: Dental/Oral/Throat Stated complaint: SORE THROAT/THOMAS SINCE YESTERDAY, NO FEVERS Time Seen by Provider: 11/26/24 09:37 Arrival date/time: 11/26/24 09:23 34-year-old female presents to the Emergency Department today for complaints of sore throat and headache since yesterday. There are no other associated symptoms or aggravating factors no other modifying factors, patient denies taking medication before coming to ER today Limitations: no limitations Related Data Previous Rx's ?Medication ?Instructions ?Recorded albuterol sulfate 90 mcg/actuation 2 puff inhalation QID PRN 03/28/21 aerosol inhaler shortness of breath or wheezing #8.5 grams ibuprofen 800 mg tablet 800 mg PO Q6H PRN pain #10 tabs 03/28/21 acetaminophen 500 mg tablet 1,000 mg (2 x 500 mg) PO TID PRN 03/13/22 (Tylenol Extra Strength) fever or pain #30 tabs sumatriptan succinate 25 mg tablet 25 mg PO Q6HR PRN migraine 12/31/22 headache #30 tabs dextromethorphan-guaifenesin 10 10 ml PO Q8H PRN cough #237 mL 06/01/23 mg-100 mg/5 mL oral syrup ibuprofen 800 mg tablet 800 mg PO Q8H PRN pain #20 tabs 06/01/23 phenazopyridine 200 mg tablet 200 mg PO TID 6 doses #6 tabs 06/09/23 (Pyridium) ibuprofen 800 mg tablet (IBU) 800 mg PO Q8H #20 tabs 07/28/23 phenazopyridine 100 mg tablet 100 mg PO TID PRN pain 6 doses #6 07/28/23 (Pyridium) tabs erythromycin 5 mg/gram (0.5 %) eye 0.5 inch ophthalmic (eye) QID #3.5 09/03/23 ointment grams ibuprofen 800 mg tablet 800 mg PO TID PRN pain #30 tabs 02/01/24 ibuprofen 800 mg tablet 800 mg PO TID PRN pain #30 tabs 10/08/24 ibuprofen 800 mg tablet 800 mg PO TID PRN pain #30 tabs 11/26/24 prednisone 10 mg tablet 30 mg (3 x 10 mg) PO BID 3 days 11/26/24 #18 tabs Allergies Allergy/AdvReac Type Severity Reaction Status Date / Time No Known Allergies Allergy Verified 11/26/24 09:26 Review of Systems Review of Systems Systems Reviewed: All systems reviewed, normal except as documented Constitutional Constitutional: Reports system reviewed and no additional complaints, except as documented, Denies fever(s) and Denies headache(s) Eyes Eyes: Reports system reviewed and no additional complaints, except as documented and Denies blurry vision ENT Ears, Nose, Mouth, and Throat: Reports system reviewed and no additional complaints, except as documented, Denies headache(s), Reports nasal congestion, Denies nasal discharge, Reports post nasal drip and Reports sore throat Cardiovascular Cardiovascular: Reports system reviewed and no additional complaints, except as documented, Denies chest pain and Denies dyspnea Respiratory Respiratory: Reports system reviewed and no additional complaints, except as documented, Denies chest congestion, Denies cough and Denies dyspnea Gastrointestinal Gastrointestinal: Reports system reviewed and no additional complaints, except as documented and Denies abdominal pain Integumentary/Breasts Skin/Breast: Reports system reviewed and no additional complaints, except as documented and Denies rash Neurologic Neurologic: Reports system reviewed and no additional complaints, except as documented, Reports as per HPI and Denies headache(s) Past Medical History Past Medical History NEUROLOGIC: Negative Neurological Disorders CARDIAC: Positive Cellulitis; Negative Cardiac Disorders or Congestive Heart Failure RESPIRATORY: Positive Asthma; Negative Chronic Obstructive Pulmonary Disease (COPD) GASTROINTESTINAL: Negative Gastrointestinal Disorders GENITOURINARY: Positive Genitourinary Disorders; Negative Renal Disease MUSCULOSKELETAL: Negative Musculoskeletal Disorders ENDOCRINE: Positive Endocrine Disorders and Systemic Lupus Erythematosus; Negative Diabetes Mellitus Type 1 or Diabetes Mellitus Type 2 HEMATOLOGIC: Positive Blood Disorders and Anemia; Negative Sickle Cell Disease PSYCHO/SOCIAL: Positive Recreational Drug Use and Depression Surgical History SURGICAL: Positive Tubal Ligation Social History SMOKING STATUS: Current every day smoker SUBSTANCE USE: former substance user (meth, heroin, weed) ED Exam General Limitations: Present no limitations General appearance: Present alert and in no apparent distress Head Head exam: Present atraumatic Eye Eye exam: Present normal appearance, PERRL and EOMI ENT ENT exam: Present normal exam, normal oropharynx and mucous membranes moist Neck Neck exam: Present normal inspection, full ROM and trachea midline Chest Chest inspection: Present normal inspection and symmetric chest wall rise Respiratory Respiratory exam: Present normal lung sounds bilaterally Cardiovascular Cardiovascular exam: Present regular rate, normal rhythm and normal heart sounds Abdominal Exam Abdominal exam: Present soft and normal bowel sounds Extremities Exam Extremities exam: Present normal inspection and full ROM Back Exam Back exam: Present normal inspection and full ROM Neurological Exam Neurological exam: Present alert, oriented X3 and CN II-XII intact Psychiatric Psychiatric exam: Present normal affect and normal mood Skin Skin exam: Present warm, dry, intact and normal color Course Quality Measures none Orders Category Date Time Status Strep A Rapid Stat Lab 11/26/24 09:50 Completed Vital Signs Vital signs: Vital Signs Temperature 98.2 F 11/26/24 09:35 Pulse Rate 74 11/26/24 09:35 Respiratory Rate 18 11/26/24 09:35 Blood Pressure 118/80 11/26/24 09:35 Pulse Oximetry (%) 98 11/26/24 09:35 Oxygen Delivery Method Room Air 11/26/24 09:35 o2 sat 98% r.a wnl Dental / Oral MDM Narrative MDM Narrative:: 34-year-old female presents to the Emergency Department today for complaints of sore throat and headache since yesterday. There are no other associated symptoms or aggravating factors no other modifying factors, patient denies taking medication before coming to ER today On exam patient well-appearing patient does not appear ill or toxic no acute distress Lab work obtained no acute emergent findings noted Patient discharged home in no distress to follow-up with primary care doctor in the next 24 to 48 hours and for any worsening symptoms to return to the ER immediately Patient data External records reviewed:: [facility] previous records Clinical information provided by:: patient Social determinants that could affect healthcare access:: none Patient has the following chronic illnesses:: none How is presenting disease/condition affected by chronic disease/condition?: no chronic disease Evaluation data The following diagnostics were reviewed and interpreted by me:: lab results Lab and/or radiology exams considered but not ordered:: lab obtained Interpretation Summary: reviewed by me Medications / Prescriptions Medications or Prescriptions considered but not ordered:: given Medication administrations:: given Consultations Consultation(s) initiated? (list below): No Diagnosis Dental Differential Diagnosis: gingival abscess, dental caries, toothache and dental abscess Most likely diagnosis given after review of the tests above:: Pharyngitis Admission Indicated Admission indicated?: not indicated Admission Request Was there a request for admission?: No Disposition Plan Disposition Plan: Discharge Discharge Attestation Discharge Attestation: The patient and all family members were given an opportunity to ask questions and understood the discharge instructions. Discharge instructions specifically effects, indications for sooner follow up or return to the emergency department, and the expected course of current diagnosis. Patient condition: Stable Discharge Plan Plan Patient Disposition: HOME (Self Care) Discharge Disposition comment: Stable Prescriptions/Referrals Prescriptions/Med Rec: New prednisone 10 mg tablet 30 mg PO BID 3 Days Qty: 18 0RF ibuprofen 800 mg tablet 800 mg PO TID PRN (Reason: pain) Qty: 30 0RF No Action albuterol sulfate 90 mcg/actuation HFA aerosol inhaler 2 puff inhalation QID PRN (Reason: shortness of breath or wheezing) Qty: 8.5 0RF ibuprofen 800 mg tablet 800 mg PO Q6H PRN (Reason: pain) Qty: 10 0RF acetaminophen [Tylenol Extra Strength] 500 mg tablet 1,000 mg PO TID PRN (Reason: fever or pain) Qty: 30 0RF ibuprofen 800 mg tablet 800 mg PO Q8H PRN (Reason: pain) Qty: 20 0RF dextromethorphan-guaifenesin 10-100 mg/5 mL syrup 10 ml PO Q8H PRN (Reason: cough) Qty: 237 0RF phenazopyridine [Pyridium] 100 mg tablet 100 mg PO TID PRN (Reason: pain) Qty: 6 0RF ibuprofen [IBU] 800 mg tablet 800 mg PO Q8H Qty: 20 0RF ibuprofen 800 mg tablet 800 mg PO TID PRN (Reason: pain) Qty: 30 0RF sumatriptan succinate 25 mg tablet 25 mg PO Q6HR PRN (Reason: migraine headache) Qty: 30 0RF Rx Instructions: do not exceed 8 doses per 24 hrs phenazopyridine [Pyridium] 200 mg tablet 200 mg PO TID Qty: 6 0RF erythromycin 5 mg/gram (0.5 %) ointment 0.5 inch ophthalmic (eye) QID Qty: 3.5 0RF ibuprofen 800 mg tablet 800 mg PO TID PRN (Reason: pain) Qty: 30 0RF Referrals: Jose Quevedo MD [Primary Care Provider] - In 1 week Problem List Clinical Impression: Pharyngitis Patient/Caregiver Discharge Instructions Education Materials: Self-Care for Sore Throats Additional Instructions: Please follow up with your primary care doctor in the next 24-48hrs for any worsening symptoms return here immediately Print Language: Thai Stand Alone Forms: Lisa Award Info., Patient Portal Info Letter PA/CARDIAC EXERCISE PHYSIOLOGIST Supervising Physician PA/CARDIAC EXERCISE PHYSIOLOGIST Supervising Physician: Dr. melissa
== END 2024-11-26 10:52 | disposition home or self-care (01) ==
PROVIDERS: Nurse Practitioner Primary Care; Emergency Provider Family Medicine; PCP Family Medicine
DX: J02.9 Acute pharyngitis, unspecified (principal)
CPT/HCPCS: 87651; 99283

== ENCOUNTER 2024-12-23 10:32 | Emergency (ER) | payer MEDICAID, SELFPAY ==
[2024-12-23 10:53] VITALS: BP 121/71; PULSE 82; RESP 18; TEMP 36.7; O2SAT 97; BMI 37.4
--- NOTE | 2024-12-23 11:02 | EDNOTE_ITS ---
ED Female Urogenital RME/HPI General Chief complaint: General Adult/Misc Complain Stated complaint: URGENCY/FREQUENCY/BURNING W/ URINATION Time Seen by Provider: 12/23/24 10:52 Source: patient Arrival date/time: 12/23/24 10:32 34-year-old female with no known medical history presents to the emergency room with a chief complaint of urinary retention, and dysuria x 3 days Mode of arrival: ambulatory Limitations: no limitations Related Data Previous Rx's ?Medication ?Instructions ?Recorded albuterol sulfate 90 mcg/actuation 2 puff inhalation Q ID PRN 03/28/21 aerosol inhaler shortness of breath or wheez ing #8.5 grams ibuprofen 800 mg tablet 800 mg PO Q6H PRN pain #10 t abs 03/28/21 acetaminophen 500 mg tablet 1,000 mg (2 x 500 mg) PO T ID PRN 03/13/22 (Tylenol Extra Strength) fever or pain #30 tabs sumatriptan succinate 25 mg tablet 25 mg PO Q6HR PRN m igraine 12/31/22 headache #30 tabs dextromethorphan-guaifenesin 10 10 ml PO Q8H PRN cough #237 mL 06/01/23 mg-100 mg/5 mL oral syrup ibuprofen 800 mg tablet 800 mg PO Q8H PRN pain #20 t abs 06/01/23 phenazopyridine 200 mg tablet 200 mg PO TID 6 doses #6 tabs 06/09/23 (Pyridium) ibuprofen 800 mg tablet (IBU) 800 mg PO Q8H #20 tabs 0 07/28/23 phenazopyridine 100 mg tablet 100 mg PO TID PRN pain 6 doses #6 07/28/23 (Pyridium) tabs erythromycin 5 mg/gram (0.5 %) eye 0.5 inch ophthalmic (eye) QID #3.5 09/03/23 ointment grams ibuprofen 800 mg tablet 800 mg PO TID PRN pain #30 t abs 02/01/24 ibuprofen 800 mg tablet 800 mg PO TID PRN pain #30 t abs 10/08/24 ibuprofen 800 mg tablet 800 mg PO TID PRN pain #30 t abs 11/26/24 doxycycline monohydrate 100 mg 100 mg PO BID 7 days #1 4 caps 12/23/24 capsule nitrofurantoin 100 mg PO Q12H 5 days #10 ca ps 12/23/24 monohydrate/macrocrystals 100 mg capsule (Macrobid) Allergies Allergy/AdvReac Type Severity Reaction Status Date / Time No Known Allergies Allergy Verified 12/23/24 10:35 Review of Systems Review of Systems Systems Reviewed: All systems reviewed, normal except as documented Constitutional Constitutional: Reports system reviewed and no additional complaints, except as documented, Denies fatigue, Denies fever(s), Denies headache(s) and Denies weakness Eyes Eyes: Reports system reviewed and no additional complaints, except as documented, Denies blurry vision and Denies change in vision ENT Ears, Nose, Mouth, and Throat: Reports system reviewed and no additional complaints, except as documented, Denies otalgia, Denies headache(s), Denies nasal congestion, Denies throat swelling and Denies vertigo Cardiovascular Cardiovascular: Reports system reviewed and no additional complaints, except as documented, Denies chest pain, Denies dyspnea and Denies dyspnea on exertion Respiratory Respiratory: Reports system reviewed and no additional complaints, except as documented, Denies chest congestion, Denies cough, Denies dyspnea, Denies dyspnea on exertion and Denies wheezing Gastrointestinal Gastrointestinal: Reports system reviewed and no additional complaints, except as documented, Denies abdominal pain, Denies cramping, Denies nausea and Denies vomiting Genitourinary Genitourinary: Reports system reviewed and no additional complaints, except as documented, Reports difficulty voiding and Reports dysuria Musculoskeletal Musculoskeletal: Reports system reviewed and no additional complaints, except as documented and Denies back pain Integumentary/Breasts Skin/Breast: Reports system reviewed and no additional complaints, except as documented and Denies wounds Neurologic Neurologic: Reports system reviewed and no additional complaints, except as documented, Denies confusion, Denies headache(s), Denies lack of coordination, Denies vertigo and Denies weakness Psychiatric Psychiatric: Reports system reviewed and no additional complaints, except as documented, Denies anxiety, Denies confusion, Denies depression, Denies paranoia, Denies suicidal ideation and Denies tactile hallucinations Endocrine Endocrine: Reports system reviewed and no additional complaints, except as documented and Denies fatigue Hematologic/Lymphatic Hematologic/Lymphatic: Reports system reviewed and no additional complaints, except as documented and Denies lymphadenopathy Allergic/Immunologic Allergic/Immunologic: Reports system reviewed and no additional complaints, except as documented, Denies throat swelling, Denies urticaria and Denies wheezing Past Medical History Past Medical History NEUROLOGIC: Negative Neurological Disorders CARDIAC: Positive Cellulitis; Negative Cardiac Disorders or Congestive Heart Failure RESPIRATORY: Positive Asthma; Negative Chronic Obstructive Pulmonary Disease (COPD) GASTROINTESTINAL: Negative Gastrointestinal Disorders GENITOURINARY: Positive Genitourinary Disorders; Negative Renal Disease MUSCULOSKELETAL: Negative Musculoskeletal Disorders ENDOCRINE: Positive Endocrine Disorders and Systemic Lupus Erythematosus; Negative Diabetes Mellitus Type 1 or Diabetes Mellitus Type 2 HEMATOLOGIC: Positive Blood Disorders and Anemia; Negative Sickle Cell Disease PSYCHO/SOCIAL: Positive Recreational Drug Use and Depression Surgical History SURGICAL: Positive Tubal Ligation Social History SMOKING STATUS: Current every day smoker SUBSTANCE USE: former substance user (meth, heroin, weed) ED Exam General Limitations: Present no limitations General appearance: Present alert and in no apparent distress Head Head exam: Present atraumatic Eye Eye exam: Present normal appearance, PERRL and EOMI ENT ENT exam: Present normal exam, normal oropharynx and mucous membranes moist Neck Neck exam: Present normal inspection, full ROM and trachea midline Chest Chest inspection: Present normal inspection and symmetric chest wall rise Respiratory Respiratory exam: Present normal lung sounds bilaterally Cardiovascular Cardiovascular exam: Present regular rate, normal rhythm and normal heart sounds Abdominal Exam Abdominal exam: Present soft and normal bowel sounds Extremities Exam Extremities exam: Present normal inspection and full ROM Back Exam Back exam: Present normal inspection and full ROM Neurological Exam Neurological exam: Present alert, oriented X3 and CN II-XII intact Psychiatric Psychiatric exam: Present normal affect and normal mood Skin Skin exam: Present warm, dry, intact and normal color Course Quality Measures none Orders Category Date Time Status Urinary Catheter QS Care 12/23/24 10:57 Active Chlamydia/GC/TV - PCR Stat Lab 12/23/24 11:23 Received MHATP/TP-PA* Stat Lab 12/23/24 11:21 Received Syphilis Stat Lab 12/23/24 11:21 Completed UA, C/S IF [Urinalysis, C/S if Indicated] Stat Lab 12/23/24 11:23 Completed PEN G ADARSH (Bicillin LA) [Bicillin La Inj] Med 12/23/24 12:50 Discontinued 2.4 mmu IM X1 ONE cefTRIAXone [Rocephin] 1,000 mg Med 12/23/24 12:50 Discontinued Lidocaine 1% 20 ml [Xylocaine 1% 20 ML] 2.1 ml IM X1 Vital Signs Vital signs: Vital Signs Temperature 98.1 F 12/23/24 10:53 Pulse Rate 82 12/23/24 10:53 Respiratory Rate 18 12/23/24 10:53 Blood Pressure 121/71 12/23/24 10:53 Pulse Oximetry (%) 97 12/23/24 10:53 Oxygen Delivery Method Room Air 12/23/24 10:53 O2 saturation 97% within normal limits Urogenital - Female MDM Narrative MDM Narrative:: 34-year-old female with no known medical history presents to the emergency room with a chief complaint of urinary retention, and dysuria x 3 days Patient is hemodynamically stable and in no apparent distress. She is afebrile not tachycardic not tachypneic. Patient is a GCS of 15 she is alert and oriented x 3 pupils are PERRLA EOMs are intact Patient states she was having difficulty urinating but while waiting the patient was able to urinate and give us a urine sample. The urinalysis was sent to the lab and showed a urinary tract infection. The patient also tested positive for syphilis. I spoke to the patient and asked her if she is aware of what she might of gotten it and she is states she has no idea. I went ahead and gave her the treatment for syphilis of unknown duration. I spoke to the patient and told her that the first shot of penicillin was given today but that she will need to come back once a week for the next 3 weeks for another shot. Antibiotics were also sent to the patient's pharmacy to help her with her urinary tract infection. The patient agreed with the course of action Patient was discharged and educated to follow-up with primary care provider in the next 24 to 48 hours and return to the emergency room for any evidence of worsening signs or symptoms Patient data External records reviewed:: [facility] previous records Clinical information provided by:: patient Social determinants that could affect healthcare access:: none Patient has the following chronic illnesses:: No chronic illness How is presenting disease/condition affected by chronic disease/condition?: no chronic disease Evaluation data The following diagnostics were reviewed and interpreted by me:: lab results and radiology exam(s) Lab and/or radiology exams considered but not ordered:: Labs and radiology exams considered and ordered Interpretation Summary: N/A Medications / Prescriptions Medications or Prescriptions considered but not ordered:: Medication given Medication administrations:: Medication Administration History Discontinued Medications Ceftriaxone Sodium 1,000 mg/ (Lidocaine HCl 2.1 ml) 0 mg IM X1 ONE Stop: 12/23/24 12:51 Last Admin: 12/23/24 14:02 Dose: 2.1 mg Documented By: VANDANA Penicillin G Benzathine (Pen G Adarsh (Bicillin La) 2.4 Mmu/4 Ml Syrg) 2.4 mmu IM X1 ONE Stop: 12/23/24 12:51 Last Admin: 12/23/24 14:02 Dose: 2.4 mmu Documented By: VANDANA No medication given Consultations Consultation(s) initiated? (list below): No Diagnosis Urogenital Female Differential Diagnosis: urinary tract infection, bacterial vaginosis, vaginitis and other (Syphilis) Most likely diagnosis given after review of the tests above:: Urinary tract infection/syphilis Admission Indicated Admission indicated?: not indicated Admission Request Was there a request for admission?: No Disposition Plan Disposition Plan: Discharge Discharge Attestation Discharge Attestation: The patient and all family members were given an opportunity to ask questions and understood the discharge instructions. Discharge instructions specifically effects, indications for sooner follow up or return to the emergency department, and the expected course of current diagnosis. Patient condition: Stable Discharge Plan Plan Patient Disposition: HOME (Self Care) Discharge Disposition comment: Stable Prescriptions/Referrals Prescriptions/Med Rec: New doxycycline monohydrate 100 mg capsule 100 mg PO BID 7 Days Qty: 14 0RF nitrofurantoin monohyd/m-cryst [Macrobid] 100 mg capsule 100 mg PO Q12H 5 Days Qty: 10 0RF Rx Instructions: must administer with a meal/food No Action albuterol sulfate 90 mcg/actuation HFA aerosol inhaler 2 puff inhalation QID PRN (Reason: shortness of breath or wheezing) Qty: 8.5 0RF ibuprofen 800 mg tablet 800 mg PO Q6H PRN (Reason: pain) Qty: 10 0RF acetaminophen [Tylenol Extra Strength] 500 mg tablet 1,000 mg PO TID PRN (Reason: fever or pain) Qty: 30 0RF ibuprofen 800 mg tablet 800 mg PO Q8H PRN (Reason: pain) Qty: 20 0RF dextromethorphan-guaifenesin 10-100 mg/5 mL syrup 10 ml PO Q8H PRN (Reason: cough) Qty: 237 0RF phenazopyridine [Pyridium] 100 mg tablet 100 mg PO TID PRN (Reason: pain) Qty: 6 0RF ibuprofen [IBU] 800 mg tablet 800 mg PO Q8H Qty: 20 0RF ibuprofen 800 mg tablet 800 mg PO TID PRN (Reason: pain) Qty: 30 0RF ibuprofen 800 mg tablet 800 mg PO TID PRN (Reason: pain) Qty: 30 0RF sumatriptan succinate 25 mg tablet 25 mg PO Q6HR PRN (Reason: migraine headache) Qty: 30 0RF Rx Instructions: do not exceed 8 doses per 24 hrs phenazopyridine [Pyridium] 200 mg tablet 200 mg PO TID Qty: 6 0RF erythromycin 5 mg/gram (0.5 %) ointment 0.5 inch ophthalmic (eye) QID Qty: 3.5 0RF ibuprofen 800 mg tablet 800 mg PO TID PRN (Reason: pain) Qty: 30 0RF Referrals: Jose Quevedo MD [Primary Care Provider] - In 1 week Problem List Clinical Impression: Syphilis, Urinary tract infection Patient/Caregiver Discharge Instructions Education Materials: Syphilis, ED CYSTITIS Female Adult Additional Instructions: Please follow-up with your primary care provider in the next 24 to 48 hours You received your first dose for your treatment of your syphilis today. You will need to come once a week for the next 3 weeks to finish your treatment. Antibiotics were also sent to your pharmacy to help you with your urinary tract infection. For any evidence of worsening signs or symptoms return the emergency room immediately Print Language: [place] Islander Stand Alone Forms: Lisa Award Info., Patient Portal Info Letter YARITZA/MARTA Supervising Physician YARITZA/MARTA Supervising Physician: Dr. Connelly
[2024-12-23 11:27] LABS: Collection Type, Urine Catheter
[2024-12-23 12:09] LABS: Bilirubin,Urine Negative (Negative); Blood,Urine 3+ (Negative); Color,Urine Dark-Brown (Lt Yel-Yel); Culture Indicated,Urine Contaminated; Glucose, Urine Negative (Negative); Ketones,Urine Negative (Negative); Leukocyte Esterase,Urine Positive (Negative); Nitrite,Urine Negative (Negative); PH,Urine 6.0 (5.0-7.0); Protein,Urine 2+ (Neg - Trace); RBC,Urine 882 /hpf (0-3); Specific Gravity,Urine 1.030 (1.001-1.035); Squamous Epithelial Cell,Urine 17 /hpf (0-5); Urobilinogen,Urine Negative mg/dL (0.0-1.0); WBC,Urine 2252 /hpf (0-5)
[2024-12-23 12:21] LABS: Syphilis Reactive (Nonreactive)
[2024-12-23 12:22] LABS: MHATP/TP-PA* See Sep Rpt
[2024-12-23 12:39] LABS: Clarity,Urine Turbid (Clear/Hazy)
[2024-12-23] MEDS: PEN G BENZ (Bicillin LA) 2.4 MMU/4 ML SYRG IM (14:02)
[2024-12-23] MEDS: cefTRIAXone 1,000 MG, LIDOCAINE 1% 20 ML 2.1 ML IM (14:02)
== END 2024-12-23 14:25 | disposition home or self-care (01) ==
PROVIDERS: Emergency Provider Nurse Practitioner Family; PCP Family Medicine
DX: A53.9 Syphilis, unspecified (principal); N39.0 Urinary tract infection, site not specified
CPT/HCPCS: 36415; 81001; 86780; 87491; 87591; 87661; 96372; 99283; J0561; J0696; J3490

== ENCOUNTER 2024-12-30 13:07 | Emergency (ER) | payer MEDICAID, SELFPAY ==
[2024-12-30 13:09] VITALS: BMI 37.4
[2024-12-30 13:17] VITALS: BP 129/82; PULSE 83; RESP 18; TEMP 36.8; O2SAT 95
[2024-12-30] MEDS: PEN G BENZ (Bicillin LA) 1.2 MMU/2 ML SYRG 2.4 MMU IM (13:37)
--- NOTE | 2024-12-30 15:07 | EDNOTE_ITS ---
<Statement entered by Cate Acevedo MD - 12/30/24 17:11> As co-signing physician, I was present and available for consult prn. I concur with the plan and care as documented by the midlevel provider. ED Female Urogenital RME/HPI General Chief complaint: General Adult/Misc Complain Stated complaint: NEEDS TREATMENT FOR SYPHILIS Time Seen by Provider: 12/30/24 13:28 Source: patient Arrival date/time: 12/30/24 13:07 34-year-old female with no known medical history presents to the emergency room with a chief complaint of needing her second dose of treatment for syphilis Mode of arrival: ambulatory Limitations: no limitations Related Data Previous Rx's ?Medication ?Instructions ?Recorded albuterol sulfate 90 mcg/actuation 2 puff inhalation Q ID PRN 03/28/21 aerosol inhaler shortness of breath or wheez ing #8.5 grams ibuprofen 800 mg tablet 800 mg PO Q6H PRN pain #10 t abs 03/28/21 acetaminophen 500 mg tablet 1,000 mg (2 x 500 mg) PO T ID PRN 03/13/22 (Tylenol Extra Strength) fever or pain #30 tabs sumatriptan succinate 25 mg tablet 25 mg PO Q6HR PRN m igraine 12/31/22 headache #30 tabs dextromethorphan-guaifenesin 10 10 ml PO Q8H PRN cough #237 mL 06/01/23 mg-100 mg/5 mL oral syrup ibuprofen 800 mg tablet 800 mg PO Q8H PRN pain #20 t abs 06/01/23 phenazopyridine 200 mg tablet 200 mg PO TID 6 doses #6 tabs 06/09/23 (Pyridium) ibuprofen 800 mg tablet (IBU) 800 mg PO Q8H #20 tabs 0 07/28/23 phenazopyridine 100 mg tablet 100 mg PO TID PRN pain 6 doses #6 07/28/23 (Pyridium) tabs erythromycin 5 mg/gram (0.5 %) eye 0.5 inch ophthalmic (eye) QID #3.5 09/03/23 ointment grams ibuprofen 800 mg tablet 800 mg PO TID PRN pain #30 t abs 02/01/24 ibuprofen 800 mg tablet 800 mg PO TID PRN pain #30 t abs 10/08/24 ibuprofen 800 mg tablet 800 mg PO TID PRN pain #30 t abs 11/26/24 Allergies Allergy/AdvReac Type Severity Reaction Status Date / Time No Known Allergies Allergy Verified 12/30/24 13:09 Review of Systems Review of Systems Systems Reviewed: All systems reviewed, normal except as documented Constitutional Constitutional: Reports system reviewed and no additional complaints, except as documented, Denies fatigue, Denies fever(s), Denies headache(s) and Denies weakness Eyes Eyes: Reports system reviewed and no additional complaints, except as documented, Denies blurry vision and Denies change in vision ENT Ears, Nose, Mouth, and Throat: Reports system reviewed and no additional complaints, except as documented, Denies otalgia, Denies headache(s), Denies nasal congestion, Denies throat swelling and Denies vertigo Cardiovascular Cardiovascular: Reports system reviewed and no additional complaints, except as documented, Denies chest pain, Denies dyspnea and Denies dyspnea on exertion Respiratory Respiratory: Reports system reviewed and no additional complaints, except as documented, Denies chest congestion, Denies cough, Denies dyspnea, Denies dyspnea on exertion and Denies wheezing Gastrointestinal Gastrointestinal: Reports system reviewed and no additional complaints, except as documented, Denies abdominal pain, Denies cramping, Denies nausea and Denies vomiting Genitourinary Genitourinary: Reports system reviewed and no additional complaints, except as documented Musculoskeletal Musculoskeletal: Reports system reviewed and no additional complaints, except as documented and Denies back pain Integumentary/Breasts Skin/Breast: Reports system reviewed and no additional complaints, except as documented and Denies wounds Neurologic Neurologic: Reports system reviewed and no additional complaints, except as documented, Denies confusion, Denies headache(s), Denies lack of coordination, Denies vertigo and Denies weakness Psychiatric Psychiatric: Reports system reviewed and no additional complaints, except as documented, Denies anxiety, Denies confusion, Denies depression, Denies paranoia, Denies suicidal ideation and Denies tactile hallucinations Endocrine Endocrine: Reports system reviewed and no additional complaints, except as documented and Denies fatigue Hematologic/Lymphatic Hematologic/Lymphatic: Reports system reviewed and no additional complaints, except as documented and Denies lymphadenopathy Allergic/Immunologic Allergic/Immunologic: Reports system reviewed and no additional complaints, except as documented, Denies throat swelling, Denies urticaria and Denies wheezing Past Medical History Past Medical History NEUROLOGIC: Negative Neurological Disorders CARDIAC: Positive Cellulitis; Negative Cardiac Disorders or Congestive Heart Failure RESPIRATORY: Positive Asthma; Negative Chronic Obstructive Pulmonary Disease (COPD) GASTROINTESTINAL: Negative Gastrointestinal Disorders GENITOURINARY: Positive Genitourinary Disorders; Negative Renal Disease MUSCULOSKELETAL: Negative Musculoskeletal Disorders ENDOCRINE: Positive Endocrine Disorders and Systemic Lupus Erythematosus; Negative Diabetes Mellitus Type 1 or Diabetes Mellitus Type 2 HEMATOLOGIC: Positive Blood Disorders and Anemia; Negative Sickle Cell Disease PSYCHO/SOCIAL: Positive Recreational Drug Use and Depression Surgical History SURGICAL: Positive Tubal Ligation Social History SMOKING STATUS: Current every day smoker SUBSTANCE USE: former substance user (meth, heroin, weed) ED Exam General Limitations: Present no limitations General appearance: Present alert and in no apparent distress Head Head exam: Present atraumatic Eye Eye exam: Present normal appearance, PERRL and EOMI ENT ENT exam: Present normal exam, normal oropharynx and mucous membranes moist Neck Neck exam: Present normal inspection, full ROM and trachea midline Chest Chest inspection: Present normal inspection and symmetric chest wall rise Respiratory Respiratory exam: Present normal lung sounds bilaterally Cardiovascular Cardiovascular exam: Present regular rate, normal rhythm and normal heart sounds Abdominal Exam Abdominal exam: Present soft and normal bowel sounds Extremities Exam Extremities exam: Present normal inspection and full ROM Back Exam Back exam: Present normal inspection and full ROM Neurological Exam Neurological exam: Present alert, oriented X3 and CN II-XII intact Psychiatric Psychiatric exam: Present normal affect and normal mood Skin Skin exam: Present warm, dry, intact and normal color Course Quality Measures none Orders Category Date Time Status PEN G DAVID (Bicillin LA) [Bicillin La Inj] Med 12/30/24 13:28 Discontinued 2.4 mmu IM X1 ONE Vital Signs Vital signs: Vital Signs Temperature 98.2 F 12/30/24 13:17 Pulse Rate 83 12/30/24 13:17 Respiratory Rate 18 12/30/24 13:17 Blood Pressure 129/82 12/30/24 13:17 Pulse Oximetry (%) 95 12/30/24 13:17 Oxygen Delivery Method Room Air 12/30/24 13:17 Urogenital - Female MDM Narrative MDM Narrative:: 34-year-old female with no known medical history presents to the emergency room with a chief complaint of needing her second dose of treatment for syphilis Patient is hemodynamically stable and in no apparent distress. Patient denies any complaints and states she is only here for second dose of treatment for syphilis The second dose of penicillin was given. The patient was educated that she will need 2 more doses Patient was discharged and educated to follow-up with primary care provider in the next 24 to 48 hours and return to the emergency room for any evidence of worsening signs or symptoms Patient data External records reviewed:: [facility] previous records Clinical information provided by:: patient Social determinants that could affect healthcare access:: none Patient has the following chronic illnesses:: No chronic illness How is presenting disease/condition affected by chronic disease/condition?: no chronic disease Evaluation data The following diagnostics were reviewed and interpreted by me:: lab results and radiology exam(s) Lab and/or radiology exams considered but not ordered:: Labs and radiology exams considered and ordered Interpretation Summary: N/A Medications / Prescriptions Medications or Prescriptions considered but not ordered:: Medication given Medication administrations:: Medication Administration History Discontinued Medications Penicillin G Benzathine (Pen G David (Bicillin La) 1.2 Mmu/2 Ml Syrg) 2.4 mmu IM X1 ONE Stop: 12/30/24 13:29 Last Admin: 12/30/24 13:37 Dose: 2.4 mmu Documented By: Medication given Consultations Consultation(s) initiated? (list below): No Diagnosis Urogenital Female Differential Diagnosis: urinary tract infection, vaginitis and other (Syphilis) Most likely diagnosis given after review of the tests above:: Syphilis Admission Indicated Admission indicated?: not indicated Admission Request Was there a request for admission?: No Disposition Plan Disposition Plan: Discharge Discharge Attestation Discharge Attestation: The patient and all family members were given an opportunity to ask questions and understood the discharge instructions. Discharge instructions specifically effects, indications for sooner follow up or return to the emergency department, and the expected course of current diagnosis. Patient condition: Stable Discharge Plan Plan Patient Disposition: HOME (Self Care) Discharge Disposition comment: Stable Prescriptions/Referrals Prescriptions/Med Rec: No Action albuterol sulfate 90 mcg/actuation HFA aerosol inhaler 2 puff inhalation QID PRN (Reason: shortness of breath or wheezing) Qty: 8.5 0RF ibuprofen 800 mg tablet 800 mg PO Q6H PRN (Reason: pain) Qty: 10 0RF acetaminophen [Tylenol Extra Strength] 500 mg tablet 1,000 mg PO TID PRN (Reason: fever or pain) Qty: 30 0RF ibuprofen 800 mg tablet 800 mg PO Q8H PRN (Reason: pain) Qty: 20 0RF dextromethorphan-guaifenesin 10-100 mg/5 mL syrup 10 ml PO Q8H PRN (Reason: cough) Qty: 237 0RF phenazopyridine [Pyridium] 100 mg tablet 100 mg PO TID PRN (Reason: pain) Qty: 6 0RF ibuprofen [IBU] 800 mg tablet 800 mg PO Q8H Qty: 20 0RF ibuprofen 800 mg tablet 800 mg PO TID PRN (Reason: pain) Qty: 30 0RF ibuprofen 800 mg tablet 800 mg PO TID PRN (Reason: pain) Qty: 30 0RF sumatriptan succinate 25 mg tablet 25 mg PO Q6HR PRN (Reason: migraine headache) Qty: 30 0RF Rx Instructions: do not exceed 8 doses per 24 hrs phenazopyridine [Pyridium] 200 mg tablet 200 mg PO TID Qty: 6 0RF erythromycin 5 mg/gram (0.5 %) ointment 0.5 inch ophthalmic (eye) QID Qty: 3.5 0RF ibuprofen 800 mg tablet 800 mg PO TID PRN (Reason: pain) Qty: 30 0RF Problem List Clinical Impression: Syphilis Patient/Caregiver Discharge Instructions Education Materials: Syphilis Additional Instructions: You were seen here today for your second dose of antibiotics for your syphilis. You will still need to return once a week for the next 2 weeks Please also make an appointment with your primary care provider in the next 24 to 48 hours for further management, blood work, and evaluation. For any evidence of worsening signs or symptoms return to the emergency room immediately Print Language: [place]ese Stand Alone Forms: Lisa Award Info., Patient Portal Info Letter PA/HOUSE MANAGER Supervising Physician PA/HOUSE MANAGER Supervising Physician: Dr. Nice
== END 2024-12-30 13:51 | disposition home or self-care (01) ==
LOC: SERX 13:48
PROVIDERS: Emergency Provider Emergency Medicine; PCP Family Medicine
DX: A53.9 Syphilis, unspecified (principal)
CPT/HCPCS: 96372; 99282; J0561

== ENCOUNTER 2025-01-08 07:06 | Emergency (ER) | payer MEDICAID, SELFPAY ==
[2025-01-08 07:16] VITALS: BP 123/84; PULSE 78; RESP 19; TEMP 36.7; O2SAT 97; BMI 36.8
--- NOTE | 2025-01-08 07:27 | PD.EDRME ---
Rapid Medical Screening Exam RME Arrival date/time: 01/08/25 07:06 Chief Complaint: Abdominal Pain Vital signs: Vital Signs Temperature 98.0 F 01/08/25 07:16 Pulse Rate 78 01/08/25 07:16 Respiratory Rate 19 01/08/25 07:16 Blood Pressure 123/84 01/08/25 07:16 Pulse Oximetry (%) 97 01/08/25 07:16 Oxygen Delivery Method Room Air 01/08/25 07:16 Pulse ox is 97% room air Vital signs reviewed by provider: Yes RME Narrative: Patient complains of 2 days of left lower quadrant pain causing her to double over. Denies vomiting, has nausea, denies diarrhea. Pain described as sharp and continuous.
--- NOTE | 2025-01-08 07:29 | XR_ITS ---
Examination: CT abdomen with intravenous contrast CT pelvis with intravenous contrast 2-D coronal reconstructions 2-D sagittal reconstructions Date and time of exam:January 08, 2025 0848 hours Comparison January 27, 2023 INDICATIONS: Lower abdominal pain nausea right lower abdominal pain beginning 2 days ago. CTDI: vol (mGy) 11.5 DLP: (mGycm) 721 Technique: Multiple axial sections of the abdomen and pelvis have been obtained. 64 slice high-resolution scanner used. 3 mm axial sections have been obtained, post intravenous injection 60 cc [id number] 2-D sagittal, coronal reconstructions obtained. Low dose protocols were performed. One or more of the following dose reduction techniques were used; automated exposure control, adjustment of the mA and/or KV according to patient size, use of iterative reconstruction technique. Findings: No focal liver or splenic lesions No gallstones No pancreatic or adrenal mass No renal or ureteral calculi, no hydronephrosis Normal appendix No bowel obstruction Abundant stool in the colon especially rectosigmoid Anteverted uterus Mildly enhancing uterine fundal mass 25 mm and prominent cervix Urinary bladder intact Moderate disc narrowing L4-L5, L5-S1 IMPRESSION: No renal or ureteral calculi, no hydronephrosis Normal appendix No bowel obstruction Abundant stool throughout the colon especially rectosigmoid Recommend pelvic sonography to exclude uterine fundal mass and assess prominent cervix
--- NOTE | 2025-01-08 07:43 | EDNOTE_ITS ---
<Statement entered by Cate Acevedo MD - 01/08/25 15:09> I, Cate Acevedo MD, have reviewed the history, exam, and assessment of the patient. I have evaluated the patient independently and agree with the plan of care documented by [ ]. All diagnostic studies were reviewed and discussed. I confirm the diagnosis as documented by the Resident. I was present during the Medical Decision Making for this patient. The patient's plan of care was created between myself and the Resident and consistent with our discussion of the patient's case. ED General RME/HPI General Chief complaint: Abdominal Pain Stated complaint: Abdominal pain X 2 days Time Seen by Provider: 01/08/25 07:42 Arrival date/time: 01/08/25 07:06 RME / HPI RME / HPI narrative: Patient complains of 2 days of left lower quadrant pain causing her to double over. Denies vomiting, has nausea, denies diarrhea. Pain described as sharp and continuous. 34-year-old female with no relevant past medical history comes into the ED due to severe lower abdominal pain which is worse on the left than on the right. Patient states that the pain started yesterday, but was a little bit more tolerable and she was able to tolerate it, but today she was unable to tolerate the pain and she also stated that she has been more constipated today as well. She mentioned that her last bowel movement was today and she only had small pebble-like feces. Otherwise she denies any vomiting, fevers, chills, burning sensation with urination, blood in the stool or blood in the urine. Patient does mention she feels a little bit nauseated, but otherwise no other complaint. 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 Last menstrual period was last month Has 6 children, no abortions all vagina deliveries. Related Data Previous Rx's ?Medication ?Instructions ?Recorded albuterol sulfate 90 mcg/actuation 2 puff inhalation Q ID PRN 03/28/21 aerosol inhaler shortness of breath or wheez ing #8.5 grams ibuprofen 800 mg tablet 800 mg PO Q6H PRN pain #10 t abs 03/28/21 acetaminophen 500 mg tablet 1,000 mg (2 x 500 mg) PO T ID PRN 03/13/22 (Tylenol Extra Strength) fever or pain #30 tabs sumatriptan succinate 25 mg tablet 25 mg PO Q6HR PRN m igraine 12/31/22 headache #30 tabs dextromethorphan-guaifenesin 10 10 ml PO Q8H PRN cough #237 mL 06/01/23 mg-100 mg/5 mL oral syrup ibuprofen 800 mg tablet 800 mg PO Q8H PRN pain #20 t abs 06/01/23 phenazopyridine 200 mg tablet 200 mg PO TID 6 doses #6 tabs 06/09/23 (Pyridium) ibuprofen 800 mg tablet (IBU) 800 mg PO Q8H #20 tabs 0 07/28/23 phenazopyridine 100 mg tablet 100 mg PO TID PRN pain 6 doses #6 07/28/23 (Pyridium) tabs erythromycin 5 mg/gram (0.5 %) eye 0.5 inch ophthalmic (eye) QID #3.5 09/03/23 ointment grams ibuprofen 800 mg tablet 800 mg PO TID PRN pain #30 t abs 02/01/24 ibuprofen 800 mg tablet 800 mg PO TID PRN pain #30 t abs 10/08/24 ibuprofen 800 mg tablet 800 mg PO TID PRN pain #30 t abs 11/26/24 Allergies Allergy/AdvReac Type Severity Reaction Status Date / Time No Known Allergies Allergy Verified 01/08/25 07:09 Review of Systems Review of Systems Systems Reviewed: All systems reviewed, normal except as documented Past Medical History Past Medical History NEUROLOGIC: Negative Neurological Disorders CARDIAC: Positive Cellulitis; Negative Cardiac Disorders or Congestive Heart Failure RESPIRATORY: Positive Asthma; Negative Chronic Obstructive Pulmonary Disease (COPD) GASTROINTESTINAL: Negative Gastrointestinal Disorders GENITOURINARY: Positive Genitourinary Disorders; Negative Renal Disease MUSCULOSKELETAL: Negative Musculoskeletal Disorders ENDOCRINE: Positive Endocrine Disorders and Systemic Lupus Erythematosus; Negative Diabetes Mellitus Type 1 or Diabetes Mellitus Type 2 HEMATOLOGIC: Positive Blood Disorders and Anemia; Negative Sickle Cell Disease PSYCHO/SOCIAL: Positive Recreational Drug Use and Depression Surgical History SURGICAL: Positive Tubal Ligation Social History SMOKING STATUS: Current every day smoker SUBSTANCE USE: former substance user (meth, heroin, weed) ED Exam Narrative Physical exam: Gen: A&O X 3, mild distress due to pain HEENT: NCAT, EOMI, Pupils reactive CHARITY, not icteric. External ears normal. No rhinorrhea. Dry mucous membranes. Neck: Supple, full range of motion, no observable masses, No meningeal sign. Lungs: No Respiratory distress, clear bilateral. CV: RRR, no murmurs. Abdomen: Soft, nondistended, tenderness to lower quadrant greater on the left on the right, no guarding, no psoas sign, no rebound tenderness. MSK: No joint swelling, no redness, peripheral pulses presents, lumbar with no edema. Skin: No rashes, petechiae, lesions.. Neuro: No focal neurological deficits appreciated, sensory and motor intact. Psych: Cooperative, appropriate mood and effect. Course Quality Measures none Orders Category Date Time Status CT Screening NOW Care 01/08/25 07:[address] Screening X1 Care 01/08/25 07:[address] abdomen pelvis w con Stat Exams 01/08/25 07:29 Completed US pelvic complete Stat Exams 01/08/25 09:58 Completed US transvaginal Stat Exams 01/08/25 09:58 Completed CBC Stat Lab 01/08/25 07:45 Completed Comprehensive Metabolic Panel Stat Lab 01/08/25 07:45 Completed Drug Screen,Urine Stat Lab 01/08/25 08:00 Completed HCG Qualitative,Urine Stat Lab 01/08/25 08:03 Completed Lactic Acid [Lactate (Lactic Acid)] Stat Lab 01/08/25 07:45 Completed Lactic Acid, 3 HR Stat Lab 01/08/25 11:24 Completed Lipase Stat Lab 01/08/25 07:45 Completed Magnesium Stat Lab 01/08/25 07:45 Completed Procalcitonin Stat Lab 01/08/25 07:45 Completed Sed Rate (ESR) Stat Lab 01/08/25 07:45 Completed Urinalysis Stat Lab 01/08/25 08:03 Completed Morphine Inj Med 01/08/25 07:52 Discontinued 2 mg IVP X1 ONE Sodium Chloride 0.9% 500 ml [Ns] 500 ml Med 01/08/25 08:19 Discontinued IV 999 mls/hr Vital Signs Vital signs: Vital Signs Temperature 98.0 F 01/08/25 07:16 Pulse Rate 78 01/08/25 07:16 Respiratory Rate 19 01/08/25 07:16 Blood Pressure 123/84 01/08/25 07:16 Pulse Oximetry (%) 97 01/08/25 07:16 Oxygen Delivery Method Room Air 01/08/25 07:16 Discharge Plan Plan Patient Disposition: HOME (Self Care) Prescriptions/Referrals Prescriptions/Med Rec: No Action albuterol sulfate 90 mcg/actuation HFA aerosol inhaler 2 puff inhalation QID PRN (Reason: shortness of breath or wheezing) Qty: 8.5 0RF ibuprofen 800 mg tablet 800 mg PO Q6H PRN (Reason: pain) Qty: 10 0RF acetaminophen [Tylenol Extra Strength] 500 mg tablet 1,000 mg PO TID PRN (Reason: fever or pain) Qty: 30 0RF ibuprofen 800 mg tablet 800 mg PO Q8H PRN (Reason: pain) Qty: 20 0RF dextromethorphan-guaifenesin 10-100 mg/5 mL syrup 10 ml PO Q8H PRN (Reason: cough) Qty: 237 0RF phenazopyridine [Pyridium] 100 mg tablet 100 mg PO TID PRN (Reason: pain) Qty: 6 0RF ibuprofen [IBU] 800 mg tablet 800 mg PO Q8H Qty: 20 0RF ibuprofen 800 mg tablet 800 mg PO TID PRN (Reason: pain) Qty: 30 0RF ibuprofen 800 mg tablet 800 mg PO TID PRN (Reason: pain) Qty: 30 0RF sumatriptan succinate 25 mg tablet 25 mg PO Q6HR PRN (Reason: migraine headache) Qty: 30 0RF Rx Instructions: do not exceed 8 doses per 24 hrs phenazopyridine [Pyridium] 200 mg tablet 200 mg PO TID Qty: 6 0RF erythromycin 5 mg/gram (0.5 %) ointment 0.5 inch ophthalmic (eye) QID Qty: 3.5 0RF ibuprofen 800 mg tablet 800 mg PO TID PRN (Reason: pain) Qty: 30 0RF Referrals: Jose Quevedo MD [Primary Care Provider] - In 1 week Problem List Clinical Impression: Abdominal pain, suprapubic, Enlarged uterus Patient/Caregiver Discharge Instructions Other Activity Instructions:: Follow-up primary care physician within 5 days You will need to follow-up with [facility] for uterine enlargement seen in pelvic and transvaginal ultrasound. No mass was seen at this time. Okay to take Tylenol every 6 hours for pain for the next 3 days. If you develop worsening abdominal pain, fevers, or worsening symptoms come back to the ER. Education Materials: Abdominal Pain Print Language: Albanian Stand Alone Forms: Lisa Award Info., Patient Portal Info Letter MDM Narrative MDM hospital course: Patient was greeted and assessed by myself upon arrival to the room. Patient did complain of abdominal pain and on palpation was very tender on the left side and on the right side of the lower abdomen, but greater on the left side down the right. No other complaints at this time and vitals are stable. Pending diagnostic imaging and labs. 9: 10: Patient's lab work reviewed and patient was reassessed. States her pain is a lot better now after she got the morphine. Labs did not show any WBC, but UA did not show some blood and bilirubin. Still awaiting CT abdomen. 9:58: CT report showed a uterine mass and will follow up with pelvic US and Transvaginal US. 10: 05: Discussed CT findings with patient and need for further imaging patient was understanding. 12: 45: Reviewed patient's pelvic and transvaginal ultrasound. These showed a diffusely enlarged uterus, but no uterine or cervical mass. 12: 50: Patient was reassessed and pain seems well-controlled. Patient's vitals are stable and at this time patient stable enough to be discharged home. Will need to follow-up with outpatient [facility]. Case disclosed with Attending Dr. Curtis Voss PGY2 Disclaimer: Even though this this note was dictated by speech recognition and even though it was carefully revised there may still be minor errors in twister in due to voice recognition software. Medication Administration(s) Medication Administration History Discontinued Medications Sodium Chloride (Ns) 500 mls @ 999 mls/hr IV .Q31M ONE Stop: 01/08/25 08:49 Last Infusion: 01/08/25 09:36 Dose: Infused Documented By: Admin: 01/08/25 09:05 Dose: 999 mls/hr Documented By: MAGGY Morphine Sulfate (Morphine Sulf Inj 10 Mg/Ml Vial) 2 mg IVP X1 ONE Stop: 01/08/25 07:53 Last Admin: 01/08/25 08:03 Dose: 2 mg Documented By: MAGGY
--- NOTE | 2025-01-08 07:57 | PC.NURSE ---
Pt comes in from home for abd pain xfew days, getting worse. Describes it as sharp, lbm was today, but states it was hard for her to go. Pt reports nausea as well. pt updated on POC and in agreement, will cont w/POC.
[2025-01-08] MEDS: MORPHINE SULF INJ 10 MG/ML VIAL 2 MG IVP (08:03)
[2025-01-08 08:09] LABS: Lactate (Lactic Acid) 2.2 mMol/L (0.4-2.0)
[2025-01-08 08:15] LABS: Basophils # (Auto) 0.1 Thou/mm3 (0.0-0.2); Basophils % (Auto) 1 % (0-2.5); Eosinophils # (Auto) 0.1 Thou/mm3 (0.0-0.5); Eosinophils % (Auto) 1 % (0-10); Hematocrit 37.4 % (36.0-46.0); Hemoglobin 12.5 g/dL (12.0-16.0); Immature Granulocytes Auto 0.01 Thou/mm3 (0.00-0.00); Lymphocytes # (Auto) 2.4 Thou/mm3 (1.0-4.8); Lymphocytes % (Auto) 28 % (10-50); Mean Corpuscular HGB Conc 33.4 g/dl (31.0-37.0); Mean Corpuscular Hemoglobin 29.1 pg (25.0-35.0); Mean Corpuscular Volume 87 fL (80-100); Monocytes # (Auto) 0.5 Thou/mm3 (0.0-0.8); Monocytes % (Auto) 6 % (0-12); Neutrophils # (Auto) 5.5 Thou/mm3 (1.8-7.7); Neutrophils % (Auto) 65 % (37-80); Nucleated Red Blood Cell # 0.00 Thou/mm3 (0.00-0.00); Nucleated Red Blood Cell % 0 /100 WBC (0); Platelet Count 315 Thou/mm3 (140-440); RDW Standard Deviation 40.3 fL (36.4-46.3); Red Blood Count 4.30 Miln/mm3 (4.00-5.20); White Blood Count 8.5 Thou/mm3 (3.6-11.0)
[2025-01-08 08:22] LABS: Collection Type, Urine Clean Catch
[2025-01-08 08:30] LABS: HCG Qualitative,Urine Negative
[2025-01-08 08:36] LABS: Bacteria,Urine 1+; Bilirubin,Urine 1+ (Negative); Blood,Urine 1+ (Negative); Calcium Oxalate Crystals,Urine 2+; Color,Urine Drk-Yellow (Lt Yel-Yel); Glucose, Urine Negative (Negative); Ketones,Urine Negative (Negative); Leukocyte Esterase,Urine Positive (Negative); Nitrite,Urine Negative (Negative); PH,Urine 5.5 (5.0-7.0); Protein,Urine 1+ (Neg - Trace); RBC,Urine 73 /hpf (0-3); Specific Gravity,Urine 1.035 (1.001-1.035); Squamous Epithelial Cell,Urine 15 /hpf (0-5); Urobilinogen,Urine 3.0 mg/dL (0.0-1.0); WBC,Urine 160 /hpf (0-5)
[2025-01-08 08:37] LABS: Clarity,Urine Hazy (Clear/Hazy)
[2025-01-08 08:38] LABS: Alanine Aminotransferase 60 U/L (10-49); Albumin, Serum 4.6 gm/dL (3.5-5.0); Albumin/Globulin Ratio 1.4 (1.2-2.2); Alkaline Phosphatase 65 U/L (46-116); Anion Gap 12 (7-16); Aspartate Amino Transferase 36 U/L (0-34); BUN/Creatinine Ratio 13 Ratio (12-20); Bilirubin,Total 0.6 mg/dL (0.3-1.2); Blood Urea Nitrogen 10 mg/dL (9-23); Calcium 9.5 mg/dL (8.3-10.6); Calcium (Corrected) 9.5 mg/dL (8.5-10.1); Carbon Dioxide 21.7 mMol/L (20.0-31.0); Chloride 106 mMol/L (98-107); Creatinine (Component) 0.8 mg/dL (0.6-1.3); Estimated Creatinine Clearance 110.2 mL/min (>60); Globulin 3.2 gm/dL (2.3-3.5); Glucose 110 mg/dL (74-106); Lipase 37 U/L (12-53); Magnesium 1.9 mg/dL (1.6-2.6); Osmolality,Calculated 279 (275-295); Potassium 4.0 mMol/L (3.4-5.1); Procalcitonin 0.04 ng/ml (0.0-0.49); Sodium 140 mMol/L (136-145); Total Protein 7.8 gm/dL (5.7-8.2); eGFR > 60 See Note
[2025-01-08 08:50] LABS: Amphetamine/Methamp Scrn,U Negative (Negative); Barbiturate Screen,Urine Negative (Negative); Benzodiazepines Screen,Urine Negative (Negative); Benzoylecgonine Screen, Ur Negative (Negative); Fentanyl Screen,Urine Negative (Negative); Opiate Screen,Urine Negative (Negative); THC Screen,Urine Negative (Negative)
[2025-01-08] MEDS: SODIUM CHLORIDE 0.9% 500 ML 500 ML 999 ML IV (09:05)
[2025-01-08 09:22] LABS: Sed Rate (ESR) 30 mm/hr (0-20)
[2025-01-08 09:56] VITALS: BP 109/63; PULSE 53; RESP 17; TEMP 36.7; O2SAT 100
--- NOTE | 2025-01-08 09:58 | XR_ITS ---
Examination: Pelvic ultrasound, transabdominal, complete Technique: Transabdominal ultrasound of the pelvis performed using grayscale imaging Date and time of exam: January 08, 2025 1026 hours INDICATIONS: CT examination today uterine fundal mass and prominent cervix FINDINGS: Uterus 11.9 cm no discrete uterine mass Endometrial stripe 3.0 cm No intrauterine gestation Right ovary 3.0 cm arterial flow Left ovary obscured by bowel gas IMPRESSION: Diffusely enlarged uterus but no uterine or cervical mass identified
--- NOTE | 2025-01-08 09:58 | XR_ITS ---
Examination: Transvaginal ultrasound of the pelvis, complete Technique: Transvaginal sonographic images pelvis performed using mayers scale imaging Exam date and time: January 08, 2025 1050 hours INDICATIONS: Uterine fundal mass and prominent cervix on CT examination today, lower abdominal pain 2 days FINDINGS: Uterus 10.7 cm no uterine mass or intrauterine gestation Thickened endometrial stripe 3.4 cm Right ovary 2.5 cm arterial flow small follicles Left ovary 2.9 cm arterial flow small follicles Mild fluid in the cul-de-sac IMPRESSION: Diffusely enlarged uterus but no discrete uterine or cervical mass
[2025-01-08 11:05] LABS: Reflex Lactate? Y
[2025-01-08 11:36] LABS: Lactic Acid, 3 HR 0.9 mMol/L (0.4-2.0)
[2025-01-08 12:24] VITALS: BP 111/71; PULSE 54; RESP 18; TEMP 36.5; O2SAT 98
== END 2025-01-08 12:59 | disposition home or self-care (01) ==
PROVIDERS: Physician Assistant; Emergency Provider Emergency Medicine; PCP Family Medicine
DX: N85.2 Hypertrophy of uterus (principal); R10.2 Pelvic and perineal pain; R10.31 Right lower quadrant pain
CPT/HCPCS: 36415; 74177; 76830; 76856; 80053; 80307; 81001; 81025; 83605; 83690; 83735; 84145; 85025; 85652; 96361; 96374; 99284; A4649; J2270; J7999; Q9967

== ENCOUNTER 2025-02-14 07:35 | Emergency (ER) | payer MEDICAID, SELFPAY ==
[2025-02-14 07:35] VITALS: BMI 33.6
[2025-02-14 07:43] VITALS: BP 120/79; PULSE 88; RESP 18; TEMP 36.9; O2SAT 98
[2025-02-14 08:07] LABS: Collection Type, Urine Clean Catch
--- NOTE | 2025-02-14 08:13 | EDNOTE_ITS ---
ED Female Urogenital RME/HPI General Chief complaint: Urogenital-Female Stated complaint: I THINK MY UTI CAME BACK Time Seen by Provider: 02/14/25 07:48 Source: patient Arrival date/time: 02/14/25 07:35 34-year-old female with no known medical history presents to the emergency room with a chief complaint of dysuria x 2 days. Patient denies any fevers, abdominal pain, flank pain. Mode of arrival: ambulatory Limitations: no limitations Related Data Previous Rx's ?Medication ?Instructions ?Recorded albuterol sulfate 90 mcg/actuation 2 puff inhalation Q ID PRN 03/28/21 aerosol inhaler shortness of breath or wheez ing #8.5 grams ibuprofen 800 mg tablet 800 mg PO Q6H PRN pain #10 t abs 03/28/21 acetaminophen 500 mg tablet 1,000 mg (2 x 500 mg) PO T ID PRN 03/13/22 (Tylenol Extra Strength) fever or pain #30 tabs sumatriptan succinate 25 mg tablet 25 mg PO Q6HR PRN m igraine 12/31/22 headache #30 tabs dextromethorphan-guaifenesin 10 10 ml PO Q8H PRN cough #237 mL 06/01/23 mg-100 mg/5 mL oral syrup ibuprofen 800 mg tablet 800 mg PO Q8H PRN pain #20 t abs 06/01/23 phenazopyridine 200 mg tablet 200 mg PO TID 6 doses #6 tabs 06/09/23 (Pyridium) ibuprofen 800 mg tablet (IBU) 800 mg PO Q8H #20 tabs 0 07/28/23 phenazopyridine 100 mg tablet 100 mg PO TID PRN pain 6 doses #6 07/28/23 (Pyridium) tabs erythromycin 5 mg/gram (0.5 %) eye 0.5 inch ophthalmic (eye) QID #3.5 09/03/23 ointment grams ibuprofen 800 mg tablet 800 mg PO TID PRN pain #30 t abs 02/01/24 ibuprofen 800 mg tablet 800 mg PO TID PRN pain #30 t abs 10/08/24 ibuprofen 800 mg tablet 800 mg PO TID PRN pain #30 t abs 11/26/24 nitrofurantoin 100 mg PO Q12H 5 days #10 ca ps 02/14/25 monohydrate/macrocrystals 100 mg capsule (Macrobid) phenazopyridine 200 mg tablet 200 mg PO TID 6 doses #6 tabs 02/14/25 (Pyridium) Allergies Allergy/AdvReac Type Severity Reaction Status Date / Time No Known Allergies Allergy Verified 02/14/25 07:35 Review of Systems Review of Systems Systems Reviewed: All systems reviewed, normal except as documented Constitutional Constitutional: Reports system reviewed and no additional complaints, except as documented, Denies fatigue, Denies fever(s), Denies headache(s) and Denies weakness Eyes Eyes: Reports system reviewed and no additional complaints, except as documente d, Denies blurry vision and Denies change in vision ENT Ears, Nose, Mouth, and Throat: Reports system reviewed and no additional complaints, except as documented, Denies otalgia, Denies headache(s), Denies nasal congestion, Denies throat swelling and Denies vertigo Cardiovascular Cardiovascular: Reports system reviewed and no additional complaints, except as documented, Denies chest pain, Denies dyspnea and Denies dyspnea on exertion Respiratory Respiratory: Reports system reviewed and no additional complaints, except as documented, Denies chest congestion, Denies cough, Denies dyspnea, Denies dyspnea on exertion and Denies wheezing Gastrointestinal Gastrointestinal: Reports system reviewed and no additional complaints, except as documented, Denies abdominal pain, Denies cramping, Denies nausea and Denies vomiting Genitourinary Genitourinary: Reports system reviewed and no additional complaints, except as documented and Reports dysuria Musculoskeletal Musculoskeletal: Reports system reviewed and no additional complaints, except as documented and Denies back pain Integumentary/Breasts Skin/Breast: Reports system reviewed and no additional complaints, except as documented and Denies wounds Neurologic Neurologic: Reports system reviewed and no additional complaints, except as documented, Denies confusion, Denies headache(s), Denies lack of coordination, Denies vertigo and Denies weakness Psychiatric Psychiatric: Reports system reviewed and no additional complaints, except as documented, Denies anxiety, Denies confusion, Denies depression, Denies paranoia, Denies suicidal ideation and Denies tactile hallucinations Endocrine Endocrine: Reports system reviewed and no additional complaints, except as documented and Denies fatigue Hematologic/Lymphatic Hematologic/Lymphatic: Reports system reviewed and no additional complaints, except as documented and Denies lymphadenopathy Allergic/Immunologic Allergic/Immunologic: Reports system reviewed and no additional complaints, except as documented, Denies throat swelling, Denies urticaria and Denies wheezing ED Exam General Limitations: Present no limitations General appearance: Present alert and in no apparent distress Head Head exam: Present atraumatic Eye Eye exam: Present normal appearance, PERRL and EOMI ENT ENT exam: Present normal exam, normal oropharynx and mucous membranes moist Neck Neck exam: Present normal inspection, full ROM and trachea midline Chest Chest inspection: Present normal inspection and symmetric chest wall rise Respiratory Respiratory exam: Present normal lung sounds bilaterally Cardiovascular Cardiovascular exam: Present regular rate, normal rhythm and normal heart sounds Abdominal Exam Abdominal exam: Present soft and normal bowel sounds; Absent distention, tenderness, guarding, rebound or rigidity Extremities Exam Extremities exam: Present normal inspection and full ROM Back Exam Back exam: Present normal inspection and full ROM Neurological Exam Neurological exam: Present alert, oriented X3 and CN II-XII intact Psychiatric Psychiatric exam: Present normal affect and normal mood Skin Skin exam: Present warm, dry, intact and normal color Course Quality Measures none Orders Category Date Time Status UA, C/S IF [Urinalysis, C/S if Indicated] Stat Lab 02/14/25 07:58 Completed cefTRIAXone [Rocephin] 1,000 mg Med 02/14/25 08:27 Discontinued Lidocaine 1% 20 ml [Xylocaine 1% 20 ML] 2.1 ml IM X1 Vital Signs Vital signs: Vital Signs Temperature 98.5 F 02/14/25 07:43 Pulse Rate 88 02/14/25 07:43 Respiratory Rate 18 02/14/25 07:43 Blood Pressure 120/79 02/14/25 07:43 Pulse Oximetry (%) 98 02/14/25 07:43 Oxygen Delivery Method Room Air 02/14/25 07:43 Urogenital - Female MDM Narrative MDM Narrative:: 34-year-old female with no known medical history presents to the emergency room with a chief complaint of dysuria x 2 days. Patient denies any fevers, abdominal pain, flank pain. Patient is hemodynamically stable and in no apparent distress Physical examination shows a soft nontender abdomen. There is no CVA tenderness. The patient denies any nausea vomiting diarrhea. Patient states her only urinary complaint is dysuria. There is no vaginal discharge or vaginal bleeding. Urinalysis was completed and showed a urinary tract infection Patient was discharged and educated to follow-up with primary care provider in the next 24 to 48 hours and return to the emergency room for any evidence of worsening signs or symptoms Patient data External records reviewed:: [facility] previous records Clinical information provided by:: patient Social determinants that could affect healthcare access:: none Patient has the following chronic illnesses:: No chronic illness How is presenting disease/condition affected by chronic disease/condition?: no chronic disease Evaluation data The following diagnostics were reviewed and interpreted by me:: lab results and radiology exam(s) Lab and/or radiology exams considered but not ordered:: Labs and radiology exams considered and ordered Interpretation Summary: N/A Medications / Prescriptions Medications or Prescriptions considered but not ordered:: No medication given Medication administrations:: Medication Administration History Discontinued Medications Ceftriaxone Sodium 1,000 mg/ (Lidocaine HCl 2.1 ml) 0 mg IM X1 ONE Stop: 02/14/25 08:28 Last Admin: 02/14/25 08:42 Dose: 1,000 mg Documented By: DB Rx given Consultations Consultation(s) initiated? (list below): No Diagnosis Urogenital Female Differential Diagnosis: urinary tract infection, bacterial vaginosis, vaginitis and cystitis Most likely diagnosis given after review of the tests above:: Urinary tract infection Admission Indicated Admission indicated?: not indicated Admission Request Was there a request for admission?: No Disposition Plan Disposition Plan: Discharge Discharge Attestation Discharge Attestation: The patient and all family members were given an opportunity to ask questions and understood the discharge instructions. Discharge instructions specifically effects, indications for sooner follow up or return to the emergency department, and the expected course of current diagnosis. Patient condition: Stable Discharge Plan Plan Patient Disposition: HOME (Self Care) Discharge Disposition comment: Stable Prescriptions/Referrals Prescriptions/Med Rec: New phenazopyridine [Pyridium] 200 mg tablet 200 mg PO TID Qty: 6 0RF nitrofurantoin monohyd/m-cryst [Macrobid] 100 mg capsule 100 mg PO Q12H 5 Days Qty: 10 0RF Rx Instructions: must administer with a meal/food No Action albuterol sulfate 90 mcg/actuation HFA aerosol inhaler 2 puff inhalation QID PRN (Reason: shortness of breath or wheezing) Qty: 8.5 0RF ibuprofen 800 mg tablet 800 mg PO Q6H PRN (Reason: pain) Qty: 10 0RF acetaminophen [Tylenol Extra Strength] 500 mg tablet 1,000 mg PO TID PRN (Reason: fever or pain) Qty: 30 0RF ibuprofen 800 mg tablet 800 mg PO Q8H PRN (Reason: pain) Qty: 20 0RF dextromethorphan-guaifenesin 10-100 mg/5 mL syrup 10 ml PO Q8H PRN (Reason: cough) Qty: 237 0RF phenazopyridine [Pyridium] 100 mg tablet 100 mg PO TID PRN (Reason: pain) Qty: 6 0RF ibuprofen [IBU] 800 mg tablet 800 mg PO Q8H Qty: 20 0RF ibuprofen 800 mg tablet 800 mg PO TID PRN (Reason: pain) Qty: 30 0RF ibuprofen 800 mg tablet 800 mg PO TID PRN (Reason: pain) Qty: 30 0RF sumatriptan succinate 25 mg tablet 25 mg PO Q6HR PRN (Reason: migraine headache) Qty: 30 0RF Rx Instructions: do not exceed 8 doses per 24 hrs phenazopyridine [Pyridium] 200 mg tablet 200 mg PO TID Qty: 6 0RF erythromycin 5 mg/gram (0.5 %) ointment 0.5 inch ophthalmic (eye) QID Qty: 3.5 0RF ibuprofen 800 mg tablet 800 mg PO TID PRN (Reason: pain) Qty: 30 0RF Referrals: Jose Quevedo MD [Primary Care Provider, Family Practice] - In 1 week Problem List Clinical Impression: Urinary tract infection Patient/Caregiver Discharge Instructions Education Materials: ED CYSTITIS Female Adult Additional Instructions: Please follow-up with your primary care provider in the next 24 to 48 hours Your urinalysis showed a urinary tract infection. Antibiotics are sent to your pharmacy please pick them up and take them as indicated For any evidence of worsening signs or symptoms return to emergency room immediately Print Language: Bermudian Stand Alone Forms: Lisa Award Info., Work/School Release, Patient Portal Info Letter PA/[employer] Supervising Physician PA/MARTA Supervising Physician: Dr. Thomas
[2025-02-14 08:19] LABS: Bilirubin,Urine Negative (Negative); Blood,Urine 3+ (Negative); Color,Urine Yellow (Lt Yel-Yel); Culture Indicated,Urine Contaminated; Glucose, Urine Negative (Negative); Ketones,Urine 1+ (Negative); Leukocyte Esterase,Urine Positive (Negative); Nitrite,Urine Negative (Negative); PH,Urine 6.0 (5.0-7.0); Protein,Urine 2+ (Neg - Trace); RBC,Urine 220 /hpf (0-3); Specific Gravity,Urine 1.022 (1.001-1.035); Squamous Epithelial Cell,Urine 11 /hpf (0-5); Urobilinogen,Urine 2.0 mg/dL (0.0-1.0); WBC,Urine 2258 /hpf (0-5)
[2025-02-14 08:20] LABS: Clarity,Urine Turbid (Clear/Hazy)
[2025-02-14] MEDS: cefTRIAXone 1,000 MG, LIDOCAINE 1% 20 ML 2.1 ML IM (08:42)
== END 2025-02-14 08:46 | disposition home or self-care (01) ==
PROVIDERS: Emergency Provider Nurse Practitioner Family; PCP Family Medicine
DX: N39.0 Urinary tract infection, site not specified (principal)
CPT/HCPCS: 81001; 99282; J0696; J3490

== ENCOUNTER 2025-05-07 17:04 | Emergency (ER) | payer MEDICAID, SELFPAY ==
--- NOTE | 2025-05-07 17:22 | EDNOTE_ITS ---
ED General RME/HPI General Chief complaint: Altered Mental Status Stated complaint: AMS RME / HPI RME / HPI narrative: Female patient, approximately 38 years of age, was brought in by ambulance after she was found down on the floor by bystanders. Report on scene patient appeared to be heavily intoxicated and were unable to obtain any further history or information. Related Data Previous Rx's ?Medication ?Instructions ?Recorded albuterol sulfate 90 mcg/actuation 2 puff inhalation Q ID PRN 03/28/21 aerosol inhaler shortness of breath or wheez ing #8.5 grams ibuprofen 800 mg tablet 800 mg PO Q6H PRN pain #10 t abs 03/28/21 acetaminophen 500 mg tablet 1,000 mg (2 x 500 mg) PO T ID PRN 03/13/22 (Tylenol Extra Strength) fever or pain #30 tabs sumatriptan succinate 25 mg tablet 25 mg PO Q6HR PRN m igraine 12/31/22 headache #30 tabs dextromethorphan-guaifenesin 10 10 ml PO Q8H PRN cough #237 mL 06/01/23 mg-100 mg/5 mL oral syrup ibuprofen 800 mg tablet 800 mg PO Q8H PRN pain #20 t abs 06/01/23 phenazopyridine 200 mg tablet 200 mg PO TID 6 doses #6 tabs 06/09/23 (Pyridium) ibuprofen 800 mg tablet (IBU) 800 mg PO Q8H #20 tabs 0 07/28/23 phenazopyridine 100 mg tablet 100 mg PO TID PRN pain 6 doses #6 07/28/23 (Pyridium) tabs erythromycin 5 mg/gram (0.5 %) eye 0.5 inch ophthalmic (eye) QID #3.5 09/03/23 ointment grams ibuprofen 800 mg tablet 800 mg PO TID PRN pain #30 t abs 02/01/24 ibuprofen 800 mg tablet 800 mg PO TID PRN pain #30 t abs 10/08/24 ibuprofen 800 mg tablet 800 mg PO TID PRN pain #30 t abs 11/26/24 phenazopyridine 200 mg tablet 200 mg PO TID 6 doses #6 tabs 02/14/25 (Pyridium) Allergies Allergy/AdvReac Type Severity Reaction Status Date / Time Unable to Assess Allergy Unverified 05/07/25 17:43 Review of Systems Review of Systems ROS Unobtainable: unobtainable due to mental status ED Exam Narrative Physical exam: GENERAL APPEARANCE:? Patient is agitated, appears intoxicated, thrashing in bed, stating I can just walk home . HEENT: normocephalic, atraumatic NECK: supple LUNGS: no respiratory distress, normal effort HEART: good peripheral perfusion ABDOMEN: non distended EXTREMITIES:? atraumatic NEUROLOGIC: awake; cranial nerves II-XII grossly intact SKIN: warm, dry, normal color; no rashes Course Quality Measures none Orders Category Date Time Status CT cervical spine wo con Stat Exams 05/07/25 17:[address] head/brain wo con Stat Exams 05/07/25 17:57 Completed Alcohol, Blood Medical Stat Lab 05/07/25 17:59 Completed CBC Stat Lab 05/07/25 17:59 Completed CMP [Comprehensive Metabolic Panel] Stat Lab 05/07/25 17:59 Completed Vital Signs Vital signs: Vital Signs Temperature 97.7 F 05/07/25 17:38 Pulse Rate 75 05/07/25 17:38 Respiratory Rate 18 05/07/25 17:38 Blood Pressure 111/78 05/07/25 17:38 Pulse Oximetry (%) 96 05/07/25 17:38 Oxygen Delivery Method Room Air 05/07/25 17:38 Discharge Plan Plan Patient Disposition: HOME (Self Care) Patient condition on transfer: Stable Prescriptions/Referrals Prescriptions/Med Rec: No Action albuterol sulfate 90 mcg/actuation HFA aerosol inhaler 2 puff inhalation QID PRN (Reason: shortness of breath or wheezing) Qty: 8.5 0RF ibuprofen 800 mg tablet 800 mg PO Q6H PRN (Reason: pain) Qty: 10 0RF acetaminophen [Tylenol Extra Strength] 500 mg tablet 1,000 mg PO TID PRN (Reason: fever or pain) Qty: 30 0RF ibuprofen 800 mg tablet 800 mg PO Q8H PRN (Reason: pain) Qty: 20 0RF dextromethorphan-guaifenesin 10-100 mg/5 mL syrup 10 ml PO Q8H PRN (Reason: cough) Qty: 237 0RF phenazopyridine [Pyridium] 100 mg tablet 100 mg PO TID PRN (Reason: pain) Qty: 6 0RF ibuprofen [IBU] 800 mg tablet 800 mg PO Q8H Qty: 20 0RF ibuprofen 800 mg tablet 800 mg PO TID PRN (Reason: pain) Qty: 30 0RF ibuprofen 800 mg tablet 800 mg PO TID PRN (Reason: pain) Qty: 30 0RF sumatriptan succinate 25 mg tablet 25 mg PO Q6HR PRN (Reason: migraine headache) Qty: 30 0RF Rx Instructions: do not exceed 8 doses per 24 hrs phenazopyridine [Pyridium] 200 mg tablet 200 mg PO TID Qty: 6 0RF erythromycin 5 mg/gram (0.5 %) ointment 0.5 inch ophthalmic (eye) QID Qty: 3.5 0RF ibuprofen 800 mg tablet 800 mg PO TID PRN (Reason: pain) Qty: 30 0RF phenazopyridine [Pyridium] 200 mg tablet 200 mg PO TID Qty: 6 0RF Problem List Clinical Impression: Alcoholic intoxication Patient/Caregiver Discharge Instructions Education Materials: ED Alcohol Intoxication Additional Instructions: Return to the emergency department for worsening symptoms, or any other concerns. Today your alcohol level was elevated to 48 however the rest of your labs are reassuring. Print Language: Moldovan Stand Alone Forms: Lisa Award Info., Patient Portal Info Letter MDM Narrative Sign Out note: 1800: Care signed out to Dr. Diane pending [facility] hospital course (for use when minimal MDM required): Kacie Miranda am scribing for and in the presence of Dr. Acevedo. Clinical Information Provided by: EMS Medical Records reviewed EMS Meds/Rx considered, not ordered None Labs/Rad/Tests considered, not ordered None Chronic Illness/Social Conditions which may negatively complicate care or outcome(s)-explain: Homeless (??) Labs Lab(s) Interpretation(s): Labs pending during sign out Imaging Imaging Interpretation(s): Ordering Physician: Cate Acevedo MD Date of Service: 05/07/25 Procedure(s): CT cervical spine wo con Accession Number(s): [id number] cc: Fabio Singh MD; Cate Acevedo MD~ Examination: CT cervical spine without contrast 2-D sagittal reconstructions 2-D coronal reconstructions 3-D reconstructions. Exam date and time: May 12, 2025, 1807 hours INDICATIONS: Patient found down unconscious, neck pain CTDI:vol (mGy) 15.5 DLP: (mGycm) 368 Technique: Multiple 2 mm axial sections of the cervical spine have been obtained. The coronal and sagittal reconstructions have been obtained. 3-D reconstructions have been obtained. Low dose protocols were performed. One or more of the following dose reduction techniques were used; automated exposure control, adjustment of the mA and/or KV according to patient size, use of iterative reconstruction technique. Findings: Patient uncooperative with severe degradation of scan images No gross fracture IMPRESSION: Nondiagnostic study, repeat Dictated By: Fabio Singh MD Signed By: <Electronically signed by Fabio Singh MD in OV> 05/07/25 1833 Ordering Physician: Cate Acevedo MD Date of Service: 05/07/25 Procedure(s): CT head/brain wo con Accession Number(s): [id number] cc: Fabio Singh MD; Cate Acevedo MD~ Examination: CT brain head without contrast. 2-D sagittal coronal reconstructions Date and time of exam: May 07, 2025, 1807 hours INDICATIONS: Patient found down unconscious CTDI: vol (mGy): 50.6 DLP: (mGycm): 1047 Technique: Multiple CT axial sections of the brain have been obtained, 5 mm slice thickness. Contrast has not been administered. 2-D sagittal, coronal reconstructions have been obtained Low dose protocols were performed. One or more of the following dose reduction techniques were used; automated exposure control, adjustment of the mA and/or KV according to patient size, use of iterative reconstruction technique. Findings: No significant ventricular enlargement. Intra-axial or extra-axial hemorrhage density is not seen. No mass effect or midline shift Basal cisterns are not remarkable. Fourth ventricle is midline. Cranial vault intact. Impression: Negative for acute hemorrhage, mass effect or midline shift Dictated By: Fabio Singh MD Signed By: <Electronically signed by Fabio Singh MD in OV> 05/07/25 2350
[2025-05-07 17:38] VITALS: BP 111/78; PULSE 75; RESP 18; TEMP 36.5; O2SAT 96
--- NOTE | 2025-05-07 17:57 | XR_ITS ---
Examination: CT brain head without contrast. 2-D sagittal coronal reconstructions Date and time of exam: May 07, 2025, 1807 hours INDICATIONS: Patient found down unconscious CTDI: vol (mGy): 50.6 DLP: (mGycm): 1047 Technique: Multiple CT axial sections of the brain have been obtained, 5 mm slice thickness. Contrast has not been administered. 2-D sagittal, coronal reconstructions have been obtained Low dose protocols were performed. One or more of the following dose reduction techniques were used; automated exposure control, adjustment of the mA and/or KV according to patient size, use of iterative reconstruction technique. Findings: No significant ventricular enlargement. Intra-axial or extra-axial hemorrhage density is not seen. No mass effect or midline shift Basal cisterns are not remarkable. Fourth ventricle is midline. Cranial vault intact. Impression: Negative for acute hemorrhage, mass effect or midline shift
--- NOTE | 2025-05-07 17:57 | XR_ITS ---
Examination: CT cervical spine without contrast 2-D sagittal reconstructions 2-D coronal reconstructions 3-D reconstructions. Exam date and time: May 12, 2025, 1807 hours INDICATIONS: Patient found down unconscious, neck pain CTDI:vol (mGy) 15.5 DLP: (mGycm) 368 Technique: Multiple 2 mm axial sections of the cervical spine have been obtained. The coronal and sagittal reconstructions have been obtained. 3-D reconstructions have been obtained. Low dose protocols were performed. One or more of the following dose reduction techniques were used; automated exposure control, adjustment of the mA and/or KV according to patient size, use of iterative reconstruction technique. Findings: Patient uncooperative with severe degradation of scan images No gross fracture IMPRESSION: Nondiagnostic study, repeat
[2025-05-07 18:16] LABS: Basophils # (Auto) 0.0 Thou/mm3 (0.0-0.2); Basophils % (Auto) 1 % (0-2.5); Eosinophils # (Auto) 0.1 Thou/mm3 (0.0-0.5); Eosinophils % (Auto) 1 % (0-10); Hematocrit 33.4 % (36.0-46.0); Hemoglobin 10.9 g/dL (12.0-16.0); Immature Granulocytes Auto 0.01 Thou/mm3 (0.00-0.00); Lymphocytes # (Auto) 2.9 Thou/mm3 (1.0-4.8); Lymphocytes % (Auto) 37 % (10-50); Mean Corpuscular HGB Conc 32.6 g/dl (31.0-37.0); Mean Corpuscular Hemoglobin 28.8 pg (25.0-35.0); Mean Corpuscular Volume 88 fL (80-100); Monocytes # (Auto) 0.3 Thou/mm3 (0.0-0.8); Monocytes % (Auto) 4 % (0-12); Neutrophils # (Auto) 4.6 Thou/mm3 (1.8-7.7); Neutrophils % (Auto) 58 % (37-80); Nucleated Red Blood Cell # 0.00 Thou/mm3 (0.00-0.00); Nucleated Red Blood Cell % 0 /100 WBC (0); Platelet Count 291 Thou/mm3 (140-440); RDW Standard Deviation 49.4 fL (36.4-46.3); Red Blood Count 3.78 Miln/mm3 (4.00-5.20); White Blood Count 7.9 Thou/mm3 (3.6-11.0)
--- NOTE | 2025-05-07 18:29 | PC.NURSE ---
I found patient laying on the bathroom floor next to room 12. I went to ask for help to get her back into her gurney, upon getting back with help I found the patient being detained on the floor by an officer who is sitting on a patient in room 11. The officer stated the patient swung at him. Staff was able to redirect the patient back into the bed and now has staff sitting to watch her. pt appears to be heavily intoxicated at this time. She is now resting in her bed, calm and resting with her eyes closed.
[2025-05-07 18:49] LABS: Alanine Aminotransferase 21 U/L (10-49); Albumin, Serum 4.6 gm/dL (3.5-5.0); Albumin/Globulin Ratio 1.5 (1.2-2.2); Alcohol, Blood Medical 248.5 mg/dL (0-10.0); Alkaline Phosphatase 57 U/L (46-116); Anion Gap 12 (7-16); Aspartate Amino Transferase 23 U/L (0-34); BUN/Creatinine Ratio 16 Ratio (12-20); Bilirubin,Total 0.4 mg/dL (0.3-1.2); Blood Urea Nitrogen 11 mg/dL (9-23); Calcium 9.7 mg/dL (8.3-10.6); Calcium (Corrected) 9.7 mg/dL (8.5-10.1); Carbon Dioxide 22.8 mMol/L (20.0-31.0); Chloride 108 mMol/L (98-107); Creatinine (Component) 0.7 mg/dL (0.6-1.3); Globulin 3.0 gm/dL (2.3-3.5); Glucose 91 mg/dL (74-106); Osmolality,Calculated 284 (275-295); Potassium 3.6 mMol/L (3.4-5.1); Sodium 143 mMol/L (136-145); Total Protein 7.6 gm/dL (5.7-8.2); eGFR > 60 See Note
[2025-05-07 19:16] VITALS: BP 119/78; PULSE 80; RESP 19; TEMP 37.2; O2SAT 97
--- NOTE | 2025-05-07 19:52 | PD.EDADDENDU ---
Emergency Room Addendum Addendum Narrative: 38-year-old female brought in after admitting to having 6-8 alcohol cans. The patient otherwise states she has no trauma. Patient was seen by Dr. Nice. Please see the complete history and physical exam for her note. Addendum is done at approximately 8 PM. Blood pressure is 119/78. Pulse is 80. Patient is afebrile at 98.9. 97% on room air. Lungs are clear bilaterally. Otherwise the patient wakes up easily and can answer questions and admits to drinking today. She does smell of some alcohol. Abdomen is soft nontender nondistended. Otherwise not febrile and does not appear toxic. White count is 7.9, hemoglobin is 10/33 platelets of 291 and normal. CMP UUN only and like to shape. 143, potassium was 3.6, chloride 108. CO2 22. Anion gap is 12. BUN/creatinine is 12 11/0.7. Otherwise LFTs are normal. Alcohol level is 248 at 1800. Reevaluation at 1 AM to see if someone can come pick her up and take her home.
[2025-05-07 23:41] VITALS: BP 101/70; PULSE 90; RESP 18; TEMP 37; O2SAT 96
== END 2025-05-08 00:08 | disposition home or self-care (01) ==
LOC: SERX 05-08 00:12
PROVIDERS: Emergency Medicine; Emergency Provider Emergency Medicine
DX: F10.129 Alcohol abuse with intoxication, unspecified (principal); R40.20 Unspecified coma; M54.2 Cervicalgia; Y90.8 Blood alcohol level of 240 mg/100 ml or more; Z59.00 Homelessness unspecified
CPT/HCPCS: 36415; 70450; 72125; 80053; 80307; 80320; 81001; 85025; 99283; G0480